=== PATIENT | male | born 1980 | race Native Hawaiian/Other Pacific Islander ===

== ENCOUNTER 2016-12-22 01:46 | Inpatient (IN) | payer OTHER ==
[2016-12-22] MEDS ORDERED: NACL 0.9% 1000 ML 1,000 ML IV ONE (01:52)
[2016-12-22 03:49] LABS: Basophils % (Auto) 0.4 % (0.0-1.8); Eosinophils % (Auto) 1.4 % (0.0-4.3); Hematocrit 38.8 % (35.5-45.6); Hemoglobin 13.4 gm/dl (11.8-15.2); Mean Corpuscular HGB Conc 35 % (32-34); Mean Corpuscular Hemoglobin 28 pg (28-32); Mean Corpuscular Volume 81 fl (84-94); Platelet Count 187 K/mm3 (140-440); Red Blood Count 4.81 M/mm3 (3.65-5.03); Red Cell Distribution Width 13.6 % (13.2-15.2); White Blood Count 8.1 K/mm3 (4.5-11.0)
[2016-12-22 03:50] LABS: Creatine Kinase 296 units/L (55-170); Creatine Kinase MB 2.3 ng/mL (0.0-4.0)
[2016-12-22 03:51] LABS: Alanine Aminotransferase 34 units/L (7-56); Albumin 4.3 g/dL (3.9-5); Albumin/Globulin Ratio 1.2 %; Alkaline Phosphatase 90 units/L (35-129); BUN/Creatinine Ratio 15.55; Bilirubin,Total 0.4 mg/dL (0.1-1.2); Blood Urea Nitrogen 14 mg/dL (9-20); Carbon Dioxide 26 mmol/L (22-30); Chloride 98.6 mmol/L (98-107); Glucose 111 mg/dL (75-100); Lipase 29 units/L (13-60); Potassium 4.2 mmol/L (3.6-5.0); Sodium 138 mmol/L (137-145)
[2016-12-22 03:54] LABS: Anion Gap 18 mmol/L
[2016-12-22 04:04] LABS: INR 0.95 (0.87-1.13); Partial Thromboplastin Time 28.7 Sec. (24.2-36.6)
[2016-12-22] MEDS ORDERED: PROTONIX IV ONE (06:28)
[2016-12-22] MEDS ORDERED: NORMODYNE IV ONE (06:30)
--- NOTE | 2016-12-22 06:32 | Emergency Department Report ---
ED GI Bleed HPI - General Chief complaint: GI Bleed Stated complaint: THROWING UP BLOOD Time Seen by Provider: 12/22/16 06:26 Source: patient Mode of arrival: Ambulatory Limitations: No Limitations - History of Present Illness Initial comments: The patient states that at approximately midnight he started vomiting. He denied abdominal plain. He had bright red hematemesis. He states he's never had anything like this before. He denies any obvious gastric irritants. He is not currently nauseated. He states he occasionally takes Advil but only drinks occasionally. He is essentially asymptomatic at this time. He was found to be hypertensive. He was given a bolus of saline prior to my arrival. MD complaint: gross hematemesis -: Sudden Severity scale (0 -10): 0 Quality: painless Consistency: now resolved Improves with: none Worsens with: none Associated Symptoms: denies other symptoms - Related Data Home Medications Medication Instructions Recorded Confirmed Last Taken No Known Home Medications [No 12/22/16 12/22/16 Unknown Reported Home Medications] Allergies Allergy/AdvReac Type Severity Reaction Status Date / Time No Known Allergies Allergy Verified 12/22/16 06:27 ED Review of Systems ROS: Stated complaint: THROWING UP BLOOD Other details as noted in HPI Constitutional: denies: chills, fever Eyes: denies: eye pain, eye discharge, vision change ENT: denies: ear pain, throat pain Respiratory: denies: cough, shortness of breath, wheezing Cardiovascular: denies: chest pain, palpitations Endocrine: no symptoms reported Gastrointestinal: hematemesis. denies: abdominal pain, nausea, diarrhea Genitourinary: denies: urgency, dysuria Musculoskeletal: denies: back pain, joint swelling, arthralgia Skin: denies: rash, lesions Neurological: denies: headache, weakness, paresthesias Psychiatric: denies: anxiety, depression Hematological/Lymphatic: denies: easy bleeding, easy bruising ED Past Medical Hx - Past Medical History Previous Medical History?: No - Surgical History Past Surgical History?: No - Social History Smoking Status: Never Smoker Substance Use Type: Alcohol - Medications Home Medications: Home Medications Medication Instructions Recorded Confirmed Last Taken Type No Known Home Medications [No 12/22/16 12/22/16 Unknown History Reported Home Medications] ED Physical Exam - General Limitations: No Limitations General appearance: alert, in no apparent distress - Head Head exam: Present: atraumatic, normocephalic - Eye Eye exam: Present: normal appearance, PERRL, EOMI. Absent: scleral icterus - ENT ENT exam: Present: normal exam, mucous membranes moist - Neck Neck exam: Present: normal inspection. Absent: tenderness, meningismus - Respiratory Respiratory exam: Present: normal lung sounds bilaterally. Absent: respiratory distress - Cardiovascular Cardiovascular Exam: Present: regular rate, normal rhythm. Absent: systolic murmur, diastolic murmur, rubs, gallop - GI/Abdominal GI/Abdominal exam: Present: soft, normal bowel sounds. Absent: distended, tenderness, guarding, rebound, rigid, organomegaly, mass, bruit, pulsatile mass , hernia - Rectal Rectal exam: Present: deferred - Extremities Exam Extremities exam: Present: normal inspection - Back Exam Back exam: Present: normal inspection - Neurological Exam Neurological exam: Present: alert, oriented X3, CN II-XII intact. Absent: motor sensory deficit - Psychiatric Psychiatric exam: Present: normal affect, normal mood - Skin Skin exam: Present: warm, dry, intact, normal color. Absent: rash ED Course Vital Signs 12/22/16 12/22/16 12/22/16 01:53 05:42 06:08 Temperature 98.7 F 98.6 F 98.1 F Pulse Rate 101 H 75 92 H Respiratory 22 20 18 Rate Blood Pressure 222/131 Blood Pressure 196/129 209/109 [Left] O2 Sat by Pulse 97 97 98 Oximetry 12/22/16 12/22/16 06:09 06:47 Temperature Pulse Rate 77 Respiratory 18 Rate Blood Pressure 175/99 Blood Pressure [Left] O2 Sat by Pulse 98 Oximetry - Reevaluation(s) Reevaluation #1: Discussed with Dr. Brown. Patient admitted to the hospitalist service. Given Protonix and labetalol for uncontrolled hypertension. A chest x-ray will be obtained. 12/22/16 07:36 ED Medical Decision Making - Lab Data Result diagrams: 12/22/16 03:15 12/22/16 03:15 Laboratory Results - last 24 hr 12/22/16 12/22/16 12/22/16 03:15 03:15 03:15 WBC 8.1 RBC 4.81 Hgb 13.4 Hct 38.8 MCV 81 L MCH 28 MCHC 35 H RDW 13.6 Plt Count 187 Lymph % (Auto) 17.2 [place] % (Auto) 9.0 H Eos % (Auto) 1.4 Baso % (Auto) 0.4 Lymph # 1.4 [place] # 0.7 Eos # 0.1 Baso # 0.0 Seg Neutrophils % 72.0 H Seg Neutrophils # 5.9 PT 12.6 INR 0.95 APTT 28.7 Sodium 138 Potassium 4.2 Chloride 98.6 Carbon Dioxide 26 Anion Gap 18 BUN 14 Creatinine 0.9 Estimated GFR > 60 BUN/Creatinine Ratio 15.55 Glucose 111 H Calcium 9.0 Total Bilirubin 0.4 AST 29 ALT 34 Alkaline Phosphatase 90 Total Creatine Kinase CK-MB (CK-2) CK-MB (CK-2) Rel Index Troponin T Total Protein 8.0 Albumin 4.3 Albumin/Globulin Ratio 1.2 Lipase 29 Blood Type Antibody Screen 12/22/16 12/22/16 03:15 03:15 WBC RBC Hgb Hct MCV MCH MCHC RDW Plt Count Lymph % (Auto) [place] % (Auto) Eos % (Auto) Baso % (Auto) Lymph # [place] # Eos # Baso # Seg Neutrophils % Seg Neutrophils # PT INR APTT Sodium Potassium Chloride Carbon Dioxide Anion Gap BUN Creatinine Estimated GFR BUN/Creatinine Ratio Glucose Calcium Total Bilirubin AST ALT Alkaline Phosphatase Total Creatine Kinase 296 H CK-MB (CK-2) 2.3 CK-MB (CK-2) Rel Index 0.7 Troponin T < 0.010 Total Protein Albumin Albumin/Globulin Ratio Lipase Blood Type A POSITIVE Antibody Screen Negative - EKG Data -: EKG Interpreted by Al EKG shows normal: sinus rhythm, axis, intervals, ST-T waves - EKG Data Interpretation: nonspecific ST-T wave lo, LVH (LVH by voltage. Lateral T wave inversions not unusual in LVH intraventricular conduction delay not unusual in LVH) Critical care attestation.: If time is entered above; I have spent that time in minutes in the direct care of this critically ill patient, excluding procedure time. ED Disposition Clinical Impression: Upper GI bleeding, Uncontrolled hypertension Disposition: DISCHARGED TO HOME OR SELFCARE Is pt being admited?: No Does the pt Need Aspirin: No Condition: Stable Instructions: Hypertension (ED) Forms: Accompanied Note Time of Disposition: 07:38
--- NOTE | 2016-12-22 07:49 | History and Physical Report ---
History of Present Illness Date of examination: 12/22/16 Date of admission: 12/22/16 Chief complaint: cough up blood History of present illness: Patient is 36 yo with no previous medical history. He presents with an episode of coughing up moderate amount of blood. He states he had been well and symptoms just started about midnight . He felt discomfort in throat and coughed up moderate amount of blood. He therefore came to ED for evaluation. He denies chest pain. No vomiting. No blood in stool.no shortness of breath. In Emergency Dept, chest X ray and CT chest were negative. He is being admitted. Past History Past Medical History: No medical history Past Surgical History: No surgical history Social history: single, smoking (No smoke), alcohol abuse (Alcohol occasionally) Family history: diabetes Medications and Allergies Allergies Allergy/AdvReac Type Severity Reaction Status Date / Time No Known Allergies Allergy Verified 12/22/16 06:27 Home Medications Medication Instructions Recorded Confirmed Last Taken Type No Known Home Medications [No 12/22/16 12/22/16 Unknown History Reported Home Medications] Review of Systems All systems: negative (No chest pain, no fever, no urinary symptoms. no headache. All other systems reviewed and are negative) Exam - Physical Exam Narrative exam: Gen appearance : Not in acute distress, sitting up in bed,morbid obesity HEENT: Normocephalic atraumatic Neck: supple, no JVD. Lungs: Lungs clear to auscultation, no crackles Heart: S1 and S2 regular, no murmurs, rubs or gallop Abdomen: soft, non-tender, non-distended, normal bowel sounds Extremities: No edema, no clubbing or cyanosis Neuro : Awake alert oriented 3, no focal signs skin: no rashes - Constitutional Vitals: Temp Pulse Resp BP Pulse Ox 98.1 F 77 18 175/99 98 12/22/16 06:08 12/22/16 06:47 12/22/16 06:09 12/22/16 06:47 12/22/16 06:09 Results - Labs CBC & Chem 7: 12/22/16 19:57 12/22/16 03:15 Labs: Abnormal lab results 12/22/16 12/22/16 12/22/16 Range/Units 03:15 03:15 03:15 MCV 81 L (84-94) fl MCHC 35 H (32-34) % [place] % (Auto) 9.0 H (0.0-7.3) % Seg Neutrophils % 72.0 H (40.0-70.0) % Glucose 111 H (75-100) mg/dL Total Creatine Kinase 296 H (55-170) units/L Assessment and Plan Hemoptysis. Etiology unclear. Admit to Medical floor. Obtain hemoglobin/ hematocrit Q 8h. CT angiogram chest neg. Chest X ray neg. hemoptysis may be secondary to acute bronchitis with cough. If any more hemoptysis will consult Pulmonology. Acute bronchitis, possibly. Solumedrol, Neb. HTN urgency. new diagnosis. He denies history of hypertension. Initial BP 222/ 131. Gave Labetalol iv. Start Norvasc and Hydralazine orally. Hydralazine iv prn. Morbid obesity. DVT prophylaxis. SCDs only because of hemoptysis. Full code status.
--- NOTE | 2016-12-22 07:51 | XRay Report ---
AP CHEST: HISTORY: Hypertension AP view of the chest demonstrates a normal mediastinal and cardiac contour with clear lungs and normal bony and soft tissue structures. IMPRESSION: Unremarkable AP chest.
[2016-12-22] MEDS ORDERED: NACL ONE (08:12)
--- NOTE | 2016-12-22 08:55 | Cat Scan Report ---
CTA CHEST: History: Hemoptysis. Technique: Helical CT following IV contrast. Pulmonary embolus protocol. Sagittal and coronal reformatted images. Rotational MIP images. Findings: Compared to the AP chest performed earlier today. Contrast bolus is satisfactory. No pulmonary embolus is identified. The thyroid gland, tracheobronchial tree, esophagus, heart, pericardium, mediastinal vessels, lung wright and bony thorax are unremarkable. Impression: No evidence for pulmonary embolus. Unremarkable CT chest with contrast.
[2016-12-22] MEDS ORDERED: TYLENOL PO PRN (10:06)
[2016-12-22] MEDS ORDERED: ZOFRAN IV PRN (10:06)
[2016-12-22] MEDS ORDERED: PROVENTIL IH PRN (10:06)
--- NOTE | 2016-12-22 10:51 | Admit Criteria Form ---
Admission Criteria Documentation: HYPERTENSION Clinical Indications for Admission to Inpatient Care ( Place "X" for any and all applicable criteria): Admission is indicated for ANY ONE of the following(1)(2)(3)(4): [ ]I. Hypertensive emergency, with evidence of acute and progressing target organ disease as indicated by ANY ONE of the following: [ ]a) Hypertensive encephalopathy (eg, confusion, altered mental status) [ ]b) Cerebral infarction [ ]c) Intracranial hemorrhage [ ]d) Myocardial ischemia or infarction [ ]e) Pulmonary edema [ ]f) Aortic dissection [ ]g) Seizure [ ]h) Acute renal insufficiency [ ]i) Papilledema [ ]j) Microangiopathic hemolytic anemia [ ]II. Adrenergic crisis (eg, severe hypertension due to pheochromocytoma crisis, cocaine or amphetamine intoxication, or clonidine withdrawal) [X]III. Severe hypertension (SBP greater than 180 mmHg or DBP greater than 110 mmHg or greater than the 95th percentile for age, gender, and height in pediatric patients) that cannot be controlled (eg, to SBP less than 160 mmHg and DBP less than 100 mmHg in adults) by treatment with oral medication in emergency department or observation care Extended stay beyond goal length of stay may be needed for(11)(12)(13): [ ]a) Persistent hypertensive encephalopathy [ ]b) Continuation of pulmonary edema [ ]c) Recurring or persistent severe hypertension [ ]d) Target organ damage (eg, angina, stroke, aortic dissection) [ ]e) Associated renal insufficiency The original [employer] content created by [employer] has been revised. The portions of the content which have been revised are identified through the use of italic text or in bold, and [employer] has neither reviewed nor approved the modified material. All other unmodified content is copyright [employer]. Please see references footnoted in the original [employer] edition 2016 Admission Criteria Met: Yes
[2016-12-22] MEDS ORDERED: D5NS 1,000 ML IV ONE (11:01)
[2016-12-22] MEDS: D5NS 1,000 ML IV SCH ×2 (11:09→14:42)
[2016-12-22 11:30] LABS: Urine Drugs of Abuse Note Disclamer
[2016-12-22 11:39] LABS: Bilirubin,Urine NEG (Negative); Blood,Urine NEG (Negative); Ketones,Urine NEG (Negative); Leukocyte Esterase,Urine NEG (Negative); Mucus,Urine FEW /HPF; Nitrite,Urine NEG (Negative); Protein,Urine <15 mg/dL mg/dL (Negative); Urobilinogen,Urine < 2.0 mg/dL (<2.0)
[2016-12-22 13:29] LABS: Hematocrit 39.4 % (35.5-45.6); Hemoglobin 13.4 gm/dl (11.8-15.2)
[2016-12-22] MEDS: PROTONIX IV SCH ×2 (14:40→22:07)
[2016-12-22] MEDS: APRESOLINE IV PRN ×2 (14:44→22:08)
[2016-12-22] MEDS: TESSALON PERLES PO SCH ×2 (18:16→22:07)
[2016-12-22] MEDS: NORVASC PO SCH (18:17)
[2016-12-22] MEDS: APRESOLINE PO SCH ×2 (18:18→22:10)
[2016-12-22 20:34] LABS: Hematocrit 39.7 % (35.5-45.6); Hemoglobin 13.5 gm/dl (11.8-15.2)
[2016-12-22] MEDS ORDERED: APRESOLINE IV PRN (22:44)
[2016-12-23] MEDS: D5NS 1,000 ML IV SCH (03:29)
[2016-12-23 05:21] LABS: Basophils % (Auto) 0.2 % (0.0-1.8); Hemoglobin 13.6 gm/dl (11.8-15.2); Mean Corpuscular HGB Conc 33 % (32-34); Mean Corpuscular Hemoglobin 27 pg (28-32); Mean Corpuscular Volume 81 fl (84-94); Platelet Count 203 K/mm3 (140-440); Red Blood Count 5.04 M/mm3 (3.65-5.03); Red Cell Distribution Width 14.1 % (13.2-15.2); White Blood Count 9.7 K/mm3 (4.5-11.0)
[2016-12-23 05:39] LABS: Anion Gap 18 mmol/L; BUN/Creatinine Ratio 13.75; Blood Urea Nitrogen 11 mg/dL (9-20); Calcium 8.8 mg/dL (8.4-10.2); Carbon Dioxide 23 mmol/L (22-30); Chloride 103.2 mmol/L (98-107); Glucose 124 mg/dL (75-100); Potassium 4.1 mmol/L (3.6-5.0); Sodium 140 mmol/L (137-145)
[2016-12-23] MEDS: APRESOLINE PO SCH ×2 (06:05→13:40)
[2016-12-23] MEDS: TESSALON PERLES PO SCH ×2 (06:06→13:40)
[2016-12-23] MEDS: PROTONIX IV SCH (10:12)
[2016-12-23] MEDS: NORVASC PO SCH (10:12)
[2016-12-23] MEDS ORDERED: NORVASC PO STA (10:13)
--- NOTE | 2016-12-23 10:22 | Discharge Summary ---
Providers - Providers Date of Admission: 12/22/16 10:06 Date of discharge: 12/23/16 Attending physician: CORBY SANFORD MD Primary care physician: PYROTECHN[facility]IAN Hospitalization Reason for admission: hemoptysis Condition: Stable Hospital course: Patient is 36 yo with no previous medical history. He presents with an episode of coughing up moderate amount of blood. He states he had been well and symptoms just started about midnight . He felt discomfort in throat and coughed up moderate amount of blood. He therefore came to ED for evaluation. He denies chest pain. No vomiting. No blood in stool.no shortness of breath. In Emergency Dept, chest X ray and CT chest were negative. He is being admitted. On admission patient's symptoms resolved completely. I'll follow discussion with the patient appears that he has been having cough episodes and subsequently one of the episodes produced blood with the expectorate. This has resolved, we had extensive discussion about weightloss and the patient verbalized understanding. We will start the patient on BP medications and he is to keep a diary of BP and follow with PCP. Discharge Diagnosis Acute bronchitis Hemoptysis-resolved HTN urgency. Morbid obesity. Disposition: DISCHARGED TO HOME OR SELFCARE Time spent for discharge: 35 mins Core Measure Documentation - Palliative Care Palliative Care/ Comfort Measures: Not Applicable - Core Measures Any of the following diagnoses?: none - VTE Discharge Requirements Deep Vein Thrombosis/Pulmonary Embolism Present on Admission: No Exam - Physical Exam Narrative exam: VITAL SIGNS: Reviewed. GENERAL: The patient appeared well nourished and normally developed. Vital signs as documented. HEAD: No signs of head trauma. EYES: Pupils are equal. Extraocular motions intact. EARS: Hearing grossly intact. MOUTH: Oropharynx is normal. NECK: No adenopathy, no JVD. CHEST: Chest with clear breath sounds bilaterally. No wheezes, rales, or rhonchi. CARDIAC: Regular rate and rhythm. S1 and S2, without murmurs, gallops, or rubs. VASCULAR: No Edema. Peripheral pulses normal and equal in all extremities. ABDOMEN: Soft, without detectable tenderness. No sign of distention. No rebound or guarding, and no masses palpated. Bowel Sounds normal. MUSCULOSKELETAL: Good range of motion of all major joints. Extremities without clubbing, cyanosis or edema. NEUROLOGIC EXAM: Alert and oriented x 3. No focal sensory or strength deficits. Speech normal. Follows commands. PSYCHIATRIC: Mood normal. SKIN: No rash or lesions. - Constitutional Vitals: Temp Pulse Resp BP Pulse Ox 98.0 F 85 22 164/88 98 12/23/16 07:15 12/23/16 10:12 12/23/16 07:15 12/23/16 10:12 12/23/16 07:15 Plan Activity: advance as tolerated Diet: low salt Special Instructions: record daily BP diary Additional Instructions: Return to hospital if Hemoptysis reoccurs Follow up with: PRIMARY CARE, [Primary Care Provider] - 3-5 Days Forms: Work/School Release Form Prescriptions: amLODIPine [Norvasc] 10 mg PO DAILY #30 tab Prednisone [predniSONE 5 mg (6-Day Pack, 21 Tabs)] 5 mg PO .TAPER #1 tab.pk
[2016-12-23] MEDS ORDERED: FLUARIX QUAD 2016-2017(36 MOS+) IM ONE (12:00)
[2016-12-23 13:25] VITALS: BP 168/98
== END 2016-12-23 14:06 | disposition home or self-care (01) | DRG 202 ==
LOC: ED 01:46 → 3A 10:06
PROVIDERS: ADMIT Internal Medicine; ATTEND Internal Medicine
DX: J20.9 Acute bronchitis, unspecified (principal); R04.2 Hemoptysis; Z68.42 Body mass index [BMI] 45.0-49.9, adult; I16.0 Hypertensive urgency; E66.01 Morbid (severe) obesity due to excess calories; I10 Essential (primary) hypertension; Z83.3 Family history of diabetes mellitus
CPT/HCPCS: 36415; 71010; 71275; 80048; 80053; 80307; 81001; 82550; 82553; 82962; 83690; 84484; 85014; 85018; 85025; 85610; 85730; 86850; 86900; 86901; 90686; 93005; 93010; 96361; 96374; 96375; C9113; J0360; J2920; J7030; J7042; Q9967

== ENCOUNTER 2020-10-30 02:15 | Inpatient (IN) | payer OTHER, SELFPAY ==
[2020-10-30] MEDS ORDERED: SODIUM CHLORIDE 0.9% 1000 ML IV SOLN IV ONE (02:45)
[2020-10-30] MEDS ORDERED: dexAMETHasone 4 MG/ML VIAL IV ONE (02:46)
[2020-10-30] MEDS ORDERED: cefTRIAXone/NS 2 GM/100 ML 2 GM/100 ML BAG IV ONE (02:46)
--- NOTE | 2020-10-30 02:49 | Emergency Department Report ---
ED Shortness of Breath HPI - General Chief Complaint: Dyspnea/Respdistress Stated Complaint: DIFFICULTY IN BREATHING Time Seen by Provider: 10/30/20 02:44 Source: EMS Mode of arrival: Stretcher Limitations: No Limitations - History of Present Illness Initial Comments: Patient is a 40-year-old male that presents emergency room with complaints of shortness of breath, cough, fever, COVID-19. Patient states he has been with cough and fever for approximately 7 to 10 days. Patient states that his shortness of breath started 4 days ago. Patient states his shortness of breath is worsening. Patient states short of breath so bad he had to call EMS. Adenike ferrell was brought in by EMS. EMS found the patient to be hypoxic at 90% and was placed on 4 L. Patient's oxygen improved with 4 L. Patient states he had his COVID-19 test on Tuesday and it was positive. Patient denies loss of smell. Patient denies nausea and vomiting. Patient denies chest pain. Patient complains of fever and chills. MD Complaint: shortness of breath, cough -: Sudden Severity: severe Improves With: rest Worsens With: exertion Known History Of: other Context: recent URI Associated Symptoms: fever, cough - Related Data Home Oxygen Therapy: No Previous Rx's Medication Instructions Recorded Last Taken Type amLODIPine [Norvasc] 10 mg PO DAILY #30 tab 12/23/16 Unknown Rx Allergies Allergy/AdvReac Type Severity Reaction Status Date / Time No Known Allergies Allergy Verified 12/22/16 06:27 ED Review of Systems ROS: Stated complaint: DIFFICULTY IN BREATHING Other details as noted in HPI Constitutional: chills, fever Eyes: denies: eye pain, eye discharge, vision change ENT: denies: ear pain, throat pain Respiratory: cough, shortness of breath. denies: wheezing Cardiovascular: denies: chest pain, palpitations Endocrine: no symptoms reported Gastrointestinal: denies: abdominal pain, nausea, diarrhea Genitourinary: denies: urgency, dysuria Musculoskeletal: denies: back pain, joint swelling, arthralgia Skin: denies: rash, lesions Neurological: denies: headache, weakness, paresthesias Psychiatric: denies: anxiety, depression Hematological/Lymphatic: denies: easy bleeding, easy bruising ED Past Medical Hx - Past Medical History Previous Medical History?: Yes Hx Hypertension: Yes Hx Congestive Heart Failure: No Hx Diabetes: No Hx Asthma: No Hx COPD: No Hx HIV: No - Surgical History Past Surgical History?: No - Family History Family history: no significant - Social History Smoking Status: Never Smoker Substance Use Type: None - Medications Home Medications: Home Medications Medication Instructions Recorded Confirmed Last Taken Type amLODIPine [Norvasc] 10 mg PO DAILY #30 tab 12/23/16 10/30/20 Unknown Rx ED Physical Exam - General Limitations: No Limitations General appearance: alert, in no apparent distress - Head Head exam: Present: atraumatic, normocephalic - Eye Eye exam: Present: normal appearance - ENT ENT exam: Present: mucous membranes moist - Neck Neck exam: Present: normal inspection - Respiratory Respiratory exam: Present: decreased breath sounds. Absent: respiratory distress - Cardiovascular Cardiovascular Exam: Present: regular rate, normal rhythm. Absent: systolic murmur, diastolic murmur, rubs, gallop - GI/Abdominal GI/Abdominal exam: Present: soft, normal bowel sounds - Rectal Rectal exam: Present: deferred - Extremities Exam Extremities exam: Present: normal inspection - Back Exam Back exam: Present: normal inspection - Neurological Exam Neurological exam: Present: alert, oriented X3 - Psychiatric Psychiatric exam: Present: normal affect, normal mood - Skin Skin exam: Present: warm, dry, intact, normal color. Absent: rash ED Course Vital Signs 10/30/20 10/30/20 10/30/20 02:20 02:22 02:31 Temperature 98.6 F Pulse Rate 93 H 96 H 96 H Respiratory 31 H 29 H 19 Rate Blood Pressure Blood Pressure 129/75 [right arm] O2 Sat by Pulse 95 96 92 Oximetry 10/30/20 10/30/20 10/30/20 02:45 03:00 03:16 Temperature Pulse Rate 89 93 H 84 Respiratory 29 H 29 H 27 H Rate Blood Pressure 131/70 131/70 131/70 Blood Pressure [right arm] O2 Sat by Pulse 93 91 93 Oximetry 10/30/20 10/30/20 10/30/20 03:30 03:46 04:00 Temperature Pulse Rate 89 Respiratory 31 H Rate Blood Pressure 131/70 131/70 143/82 Blood Pressure [right arm] O2 Sat by Pulse 94 93 92 Oximetry 10/30/20 10/30/20 10/30/20 04:16 04:30 04:46 Temperature Pulse Rate Respiratory 15 Rate Blood Pressure 143/82 143/82 143/82 Blood Pressure [right arm] O2 Sat by Pulse 91 90 Oximetry - Reevaluation(s) Reevaluation #1: I discussed all results with patient. I discussed plan of care with patient. Patient agrees with plan of care and admission. Patient to be admitted to the hospitalist service. 10/30/20 03:38 - Consultations Consultation #1: Hospitalist consulted for admission. Hospitalist to admit patient. 10/30/20 03:40 Consultation #2: Infectious disease consult placed. 10/30/20 03:41 ED Medical Decision Making - Lab Data Result diagrams: 10/30/20 02:59 10/30/20 02:59 - Radiology Data Radiology results: report reviewed, image reviewed CHEST 1 VIEW INDICATION: sob. COMPARISON: 12/22/2016 FINDINGS: SUPPORT DEVICES: None. HEART: Within normal limits. LUNGS/PLEURA: Patchy left basilar airspace disease. ADDITIONAL FINDINGS: None. IMPRESSION: 1. Pulmonary findings as above. - Medical Decision Making Patient is a 40-year-old male that presents emergency room with complaints of shortness of breath, cough, COVID-19. Patient had a Covid test 3 to 4 days prior to coming to the hospital. Patient shortness of breath has been going on for 3 or 4 days and is worsening. Patient brought in by EMS and found to be hypoxic. Patient required 4 L of oxygen to maintain an oxygen level of 96. Patient given antibiotics, fluids early in his ER stay. Patient had a sepsis protocol as well as a Covid panel done. ID was consulted. Patient admitted to the hospital service for further evaluation and treatment. - Differential Diagnosis Covid, S OB, pneumonia, respiratory failure, Critical Care Time: Yes Critical care time in (mins) excluding proc time.: 35 Critical care attestation.: If time is entered above; I have spent that time in minutes in the direct care of this critically ill patient, excluding procedure time. Critical Care Time: 35 minutes ED Disposition Clinical Impression: Hypoxia, SOB (shortness of breath), COVID-19 Respiratory failure Qualifiers: Chronicity: acute Respiratory failure complication: hypoxia Qualified Code(s): J96.01 - Acute respiratory failure with hypoxia Pneumonia Qualifiers: Pneumonia type: due to unspecified organism Laterality: bilateral Lung location: unspecified part of lung Qualified Code(s): J18.9 - Pneumonia, unspecified organism Disposition: 09 OP ADMIT IP TO THIS HOSP Is pt being admited?: Yes Does the pt Need Aspirin: No Condition: Critical Time of Disposition: 03:38
[2020-10-30 02:53] LABS: Bilirubin,Urine NEG (Negative); Blood,Urine SM (Negative); Color,Urine Yellow (Yellow); Mucus,Urine FEW /HPF
[2020-10-30 03:05] LABS: Bacteria,Urine 1+ /HPF (Negative)
[2020-10-30 03:17] LABS: Basophils % (Auto) 0.1 % (0.0-1.8); Hematocrit 36.6 % (35.5-45.6); Hemoglobin 12.7 gm/dl (11.8-15.2); Lymphocytes # (Auto) 0.8 K/mm3 (1.2-5.4); Lymphocytes % (Auto) 13.7 % (13.4-35.0); Mean Corpuscular HGB Conc 35 % (32-34); Mean Corpuscular Volume 81 fl (84-94); Monocytes # (Auto) 0.7 K/mm3 (0.0-0.8); Platelet Count 158 K/mm3 (140-440); Red Cell Distribution Width 13.2 % (13.2-15.2)
--- NOTE | 2020-10-30 03:31 | XRay Report ---
CHEST 1 VIEW INDICATION: sob. COMPARISON: 12/22/2016 FINDINGS: SUPPORT DEVICES: None. HEART: Within normal limits. LUNGS/PLEURA: Patchy left basilar airspace disease. ADDITIONAL FINDINGS: None. IMPRESSION: 1. Pulmonary findings as above. Signer Name: Reji Aguilar MD Signed: 10/30/2020 3:26 AM Workstation Name: [id number]
[2020-10-30 03:35] LABS: Alanine Aminotransferase 55 units/L (7-56); Albumin 3.6 g/dL (3.9-5); BUN/Creatinine Ratio 14; Blood Urea Nitrogen 13 mg/dL (9-20); Calcium 8.4 mg/dL (8.4-10.2); Hemolysis Index 5
[2020-10-30 03:42] LABS: C-Reactive Protein 8.3 mg/dL (0.00-1.30)
[2020-10-30] MEDS ORDERED: ACETAMINOPHEN 325 MG TAB PO PRN (04:31)
[2020-10-30] MEDS ORDERED: ONDANSETRON 4 MG/2 ML INJ IV PRN (04:34)
--- NOTE | 2020-10-30 05:07 | History and Physical Report ---
History of Present Illness Date of examination: 10/30/20 Date of admission: 10/30/20 03:46 Chief complaint: Shortness of breath, cough and fever History of present illness: History of presenting illness, Patient is 4o year old male who presents to ED with history of cough , fever and weakness going on for about 10 days, patient later on developed history of short ness of breath about 4 days ago that became progressively worse to the extent that patient could not engage in mild activity and EMS was called and patient was found to be hypoxic and he was placed on oxygen with improvement in the shortness of breath.Patient recently tested positive to COVID -19 about 4 days prior to presentation. Past History Past Medical History: hypertension Past Surgical History: No surgical history Social history: no significant social history Family history: no significant family history Medications and Allergies Allergies Allergy/AdvReac Type Severity Reaction Status Date / Time No Known Allergies Allergy Verified 12/22/16 06:27 Home Medications Medication Instructions Recorded Confirmed Last Taken Type amLODIPine [Norvasc] 10 mg PO DAILY #30 tab 12/23/16 10/30/20 Unknown Rx Active Meds: Active Medications Acetaminophen (Tylenol) 650 mg PO Q4H PRN PRN Reason: Fever >101 Dexamethasone (Decadron) 6 mg IV DAILY EVER Heparin Sodium (Porcine) (Heparin) 5,000 unit SUB-Q Q12HR [facility]ER Azithromycin 500 mg/ Sodium (Chloride) 250 mls @ 250 mls/hr IV Q24HR EVER; Protocol Ceftriaxone Sodium (Rocephin/Ns 2 Gm/100 Ml) 2 gm in 100 mls @ 200 mls/hr IV Q24HR [facility]ER; Protocol Ondansetron HCl (Zofran) 4 mg IV Q8H PRN PRN Reason: Nausea And Vomiting Review of Systems Constitutional: fever, chills, weakness, no sweats, no night sweats Eyes: bilateral: other (NO BILATERAL EYE SYMPTOM) Cardiovascular: no chest pain, no orthopnea, no palpitations, no rapid/irregular heart beat, no syncope, no lightheadedness Respiratory: cough, shortness of breath, dyspnea on exertion, no cough with sputum, no excessive sputum, no hemoptysis, no congestion, no wheezing, no pleurisy, no pain Gastrointestinal: no abdominal pain, no nausea, no vomiting, no diarrhea, no constipation, no hematemesis, no melena, no hematochezia Genitourinary Male: no dysuria, no hematuria, no nocturia, no incontinence, no erectile dysfunction Musculoskeletal: no neck stiffness, no neck pain, no shooting arm pain, no arm numbness/tingling, no low back pain, no shooting leg pain Integumentary: no rash, no pruritis, no redness, no sores, no wounds Neurological: weakness, no paralysis, no numbness, no tingling, no seizures, no syncope, no tremors, no vertigo, no headaches, no migraines, no convulsions, no confusion Psychiatric: no anxiety, no memory loss Endocrine: no polydipsia, no polyuria, no nocturia, no excessive sweating Hematologic/Lymphatic: no easy bruising Exam - Constitutional Vitals: Temp Pulse Resp BP Pulse Ox 98.6 F 89 31 H 131/70 93 10/30/20 02:22 10/30/20 03:30 10/30/20 03:30 10/30/20 03:46 10/30/20 03:46 General appearance: Present: no acute distress - EENT Eyes: Present: PERRL, EOM intact ENT: hearing intact, clear oral mucosa - Neck Neck: Present: supple, normal ROM - Respiratory Respiratory effort: normal - Cardiovascular Rhythm: regular Heart Sounds: Present: S1 & S2. Absent: gallop, systolic murmur, diastolic murmur, click - Extremities Extremities: no ischemia, No edema Peripheral Pulses: within normal limits - Abdominal General gastrointestinal: Present: soft, non-tender, non-distended. Absent: tender, distended, rigid, hepatomegaly Male genitourinary: Present: deferred - Rectal Rectal Exam: deferred - Integumentary Integumentary: Present: clear, warm, dry - Musculoskeletal Musculoskeletal: strength equal bilaterally - Psychiatric Psychiatric: appropriate mood/affect - Neurologic Neurologic: moves all extremities HEART Score - HEART Score Risk factors: 1-2 risk factors Troponin: < normal limit - Critical Actions Critical Actions: 0-3 pts:0.9-1.7%risk of adverse cardiac event.Candidate for discharge Results - Labs CBC & Chem 7: 10/30/20 02:59 10/30/20 02:59 Labs: Laboratory Last Values WBC 6.2 K/mm3 (4.5-11.0) 10/30/20 02:59 RBC 4.50 M/mm3 (3.65-5.03) 10/30/20 02:59 Hgb 12.7 gm/dl (11.8-15.2) 10/30/20 02:59 Hct 36.6 % (35.5-45.6) 10/30/20 02:59 MCV 81 fl (84-94) L 10/30/20 02:59 MCH 28 pg (28-32) 10/30/20 02:59 MCHC 35 % (32-34) H 10/30/20 02:59 RDW 13.2 % (13.2-15.2) 10/30/20 02:59 Plt Count 158 K/mm3 (140-440) 10/30/20 02:59 Lymph % (Auto) 13.7 % (13.4-35.0) 10/30/20 02:59 [place] % (Auto) 11.0 % (0.0-7.3) H 10/30/20 02:59 Eos % (Auto) 0.0 % (0.0-4.3) 10/30/20 02:59 Baso % (Auto) 0.1 % (0.0-1.8) 10/30/20 02:59 Lymph # (Auto) 0.8 K/mm3 (1.2-5.4) L 10/30/20 02:59 [place] # (Auto) 0.7 K/mm3 (0.0-0.8) 10/30/20 02:59 Eos # (Auto) 0.0 K/mm3 (0.0-0.4) 10/30/20 02:59 Baso # (Auto) 0.0 K/mm3 (0.0-0.1) 10/30/20 02:59 Seg Neutrophils % 75.2 % (40.0-70.0) H 10/30/20 02:59 Seg Neutrophils # 4.6 K/mm3 (1.8-7.7) 10/30/20 02:59 D-Dimer 494.03 ng/mlDDU (0-234) H 10/30/20 02:59 Sodium 134 mmol/L (137-145) L 10/30/20 02:59 Potassium 3.7 mmol/L (3.6-5.0) 10/30/20 02:59 Chloride 97.3 mmol/L (98-107) L 10/30/20 02:59 Carbon Dioxide 24 mmol/L (22-30) 10/30/20 02:59 Anion Gap 16 mmol/L 10/30/20 02:59 BUN 13 mg/dL (9-20) 10/30/20 02:59 Creatinine 0.9 mg/dL (0.8-1.3) 10/30/20 02:59 Estimated GFR > 60 ml/min 10/30/20 02:59 BUN/Creatinine Ratio 14 % 10/30/20 02:59 Glucose 106 mg/dL (75-100) H 10/30/20 02:59 Glucose 108 mg/dL (75-100) H 10/30/20 02:59 Lactic Acid 1.10 mmol/L (0.7-2.0) 10/30/20 03:09 Calcium 8.4 mg/dL (8.4-10.2) 10/30/20 02:59 Ferritin 528.3 ng/mL (30.0-300.0) H 10/30/20 03:02 Total Bilirubin 0.50 mg/dL (0.1-1.2) 10/30/20 02:59 AST 34 units/L (5-40) 10/30/20 02:59 ALT 55 units/L (7-56) 10/30/20 02:59 Alkaline Phosphatase 62 units/L (35-129) 10/30/20 02:59 Lactate Dehydrogenase 271 units/L (91-180) H 10/30/20 02:59 C-Reactive Protein 8.30 mg/dL (0.00-1.30) H 10/30/20 02:59 Total Protein 7.4 g/dL (6.3-8.2) 10/30/20 02:59 Albumin 3.6 g/dL (3.9-5) L 10/30/20 02:59 Albumin/Globulin Ratio 0.9 % 10/30/20 02:59 Urine Color Yellow (Yellow) 10/30/20 Unknown Urine Turbidity Clear (Clear) 10/30/20 Unknown Urine pH 5.0 (5.0-7.0) 10/30/20 Unknown Ur Specific [place] 1.025 (1.003-1.030) 10/30/20 Unknown Urine Protein 30 mg/dl mg/dL (Negative) 10/30/20 Unknown Urine Glucose (UA) Neg mg/dL (Negative) 10/30/20 Unknown Urine Ketones Neg mg/dL (Negative) 10/30/20 Unknown Urine Blood Sm (Negative) 10/30/20 Unknown Urine Nitrite Neg (Negative) 10/30/20 Unknown Urine Bilirubin Neg (Negative) 10/30/20 Unknown Urine Urobilinogen 2.0 mg/dL (<2.0) 10/30/20 Unknown Ur Leukocyte Esterase Neg (Negative) 10/30/20 Unknown Urine WBC (Auto) 6.0 /HPF (0.0-6.0) 10/30/20 Unknown Urine RBC (Auto) 1.0 /HPF (0.0-6.0) 10/30/20 Unknown U Epithel Cells (Auto) 1.0 /HPF (0-13.0) 10/30/20 Unknown Urine Bacteria (Auto) 1+ /HPF (Negative) 10/30/20 Unknown Urine Mucus Few /HPF 10/30/20 Unknown [place]/IV: IV Catheter Type [left adc] Peripheral IV Assessment and Plan - Patient Problems (1) COVID-19 Current Visit: Yes Status: Acute Plan to address problem: 1 CONTACT AND DROPLET ISOLATION 2. INFECTIOUS DISEASE CONSULT 3. I.V DEXAMETHASONE 3. I.V ZITHROMAX AND I.V ROCEPHIN ANTIBIOTIC (2) Hypoxia Current Visit: Yes Status: Acute Plan to address problem: OXYGEN BY NAASAL CANNULA (3) Pneumonia Current Visit: Yes Status: Acute Qualifiers: Pneumonia type: due to unspecified organism Laterality: bilateral Lung location: unspecified part of lung Qualified Code(s): J18.9 - Pneumonia, unspecified organism Plan to address problem: 1. I.V ZITHROMAX ANTIBIOTIC 2. I.V ROCEPHIN ANTIBIOTIC 3. TYLENOL PO FOR FEVER 4. OXYGEN BY NASAL CANNULA (4) Respiratory failure Current Visit: Yes Status: Acute Qualifiers: Chronicity: acute Respiratory failure complication: hypoxia Qualified Code(s): J96.01 - Acute respiratory failure with hypoxia Plan to address problem: 1. OXYGEN BY NASAL CANNULA 2. ALBUTEROL NEBULIZER PRN SHORTNESS OF BREATH
[2020-10-30 09:25] LABS: C-Reactive Protein 8.2 mg/dL (0.00-1.30)
[2020-10-30] MEDS: HEPARIN 5,000 UNIT/1 ML VIAL SUB-Q SCH ×2 (09:56→22:52)
[2020-10-30] MEDS: DEXAMETHASONE 4 MG TAB PO SCH (09:57)
[2020-10-30] MEDS ORDERED: dexAMETHasone 4 MG/ML VIAL IV SCH (10:00)
[2020-10-30] MEDS ORDERED: AZITHROMYCIN 500 MG in SODIUM CHLORIDE 0.9% 250ML 250 ML IV SCH ×2 (10:00)
--- NOTE | 2020-10-30 13:36 | Event Note ---
Date: 10/30/20 Patient seen and examined continues in restraints. Will continue current care, await home meds to reconcile. Awaiting COVID19 result.
--- NOTE | 2020-10-30 15:29 | Consultation ---
History of Present Illness - Reason for Consult Consult date: 10/30/20 - History of Present Illness 40-year-old man medical history hypertension, morbid obesity admitted to the hospital with cough, fever, weakness for the past 10 days. Approximately 4 days ago developed shortness of breath. And that became progressively worse which prompted admission to the hospital. Patient notes that he tested positive for COVID-19 4 days prior to presentation. With a white count of 6.2. Procalcitonin is normal renal function is normal. Currently on ceftriaxone azithromycin. Blood cultures currently pending. Imaging personally reviewed: Chest x-ray: Patchy left airspace disease. Review of Systems: Bold if positive, otherwise negative General: fevers, chills, rigors HEENT: visual disturbance, diplopia, eye pain Respiratory: cough, sputum, hemoptysis, shortness of breath Cardiovascular: chest pain, syncope Gastrointestinal: nausea, vomiting, diarrhea, abdominal pain Genitourinary: dysuria, hematuria, flank pain Musculoskeletal: neck pain, back pain, joint pain, edema Neurologic: headaches, seizures Hematologic: easy bruising or bleeding Endocrine: night sweats, acute weight loss Skin: rash, jaundice, redness Psychiatric: suicidal, homicidal ideation Past History Past Medical History: hypertension Past Surgical History: No surgical history Social history: no significant social history Family history: no significant family history Medications and Allergies Allergies Allergy/AdvReac Type Severity Reaction Status Date / Time No Known Allergies Allergy Verified 12/22/16 06:27 Home Medications Medication Instructions Recorded Confirmed Last Taken Type amLODIPine [Norvasc] 10 mg PO DAILY #30 tab 12/23/16 10/30/20 Unknown Rx Lisinopril 20 mg PO DAILY 10/30/20 10/30/20 10/29/20 History Procardia 10/30/20 10/29/20 History Active Meds: Active Medications Acetaminophen (Tylenol) 650 mg PO Q4H PRN PRN Reason: Fever >101 Azithromycin (Zithromax) 500 mg PO QDAY [facility] Stop: 11/03/20 10:01 Dexamethasone (Decadron) 6 mg PO DAILY [facility] Stop: 11/08/20 10:01 Last Admin: 10/30/20 09:57 Dose: 6 mg Documented by: Heparin Sodium (Porcine) (Heparin) 5,000 unit SUB-Q Q12HR [facility] Last Admin: 12/03/20 09:56 Dose: 5,000 unit Documented by: Ceftriaxone Sodium (Rocephin/Ns 2 Gm/100 Ml) 2 gm in 100 mls @ 200 mls/hr IV Q24HR@2200 [facility]; Protocol Ondansetron HCl (Zofran) 4 mg IV Q8H PRN PRN Reason: Nausea And Vomiting Physical Examination - Physical Exam Narrative exam: Physical exam deferred due to PPE conservation strategy. Please refer to primary team's note. - Constitutional Vitals: Vital Signs Temp Pulse Resp BP Pulse Ox 97.9 F 83 20 112/73 95 10/30/20 11:57 10/30/20 11:57 10/30/20 11:57 10/30/20 11:57 10/30/20 11:57 Temperature -Last 24 Hours Temperature 97.9 F Temperature 97.9 F Temperature 98.6 F Results - Labs CBC & Chem 7: 10/30/20 02:59 10/30/20 07:36 Labs: Abnormal lab results 10/30/20 10/30/20 10/30/20 Range/Units 02:59 02:59 02:59 MCV 81 L (84-94) fl MCHC 35 H (32-34) % [place] % (Auto) 11.0 H (0.0-7.3) % Lymph # (Auto) 0.8 L (1.2-5.4) K/mm3 Seg Neutrophils % 75.2 H (40.0-70.0) % D-Dimer 494.03 H (0-234) ng/mlDDU Sodium 134 L (137-145) mmol/L Chloride 97.3 L (98-107) mmol/L Glucose 106 H (75-100) mg/dL Ferritin (30.0-300.0) ng/mL Lactate Dehydrogenase (91-180) units/L C-Reactive Protein (0.00-1.30) mg/dL Albumin 3.6 L (3.9-5) g/dL Coronavirus (PCR) (Negative) 10/30/20 10/30/20 10/30/20 Range/Units 02:59 03:02 07:36 MCV (84-94) fl MCHC (32-34) % [place] % (Auto) (0.0-7.3) % Lymph # (Auto) (1.2-5.4) K/mm3 Seg Neutrophils % (40.0-70.0) % D-Dimer 420.59 H (0-234) ng/mlDDU Sodium (137-145) mmol/L Chloride (98-107) mmol/L Glucose 108 H (75-100) mg/dL Ferritin 528.3 H (30.0-300.0) ng/mL Lactate Dehydrogenase 271 H (91-180) units/L C-Reactive Protein 8.30 H (0.00-1.30) mg/dL Albumin (3.9-5) g/dL Coronavirus (PCR) (Negative) 10/30/20 10/30/20 10/30/20 Range/Units 07:36 07:36 Unknown MCV (84-94) fl MCHC (32-34) % [place] % (Auto) (0.0-7.3) % Lymph # (Auto) (1.2-5.4) K/mm3 Seg Neutrophils % (40.0-70.0) % D-Dimer (0-234) ng/mlDDU Sodium (137-145) mmol/L Chloride (98-107) mmol/L Glucose 132 H (75-100) mg/dL Ferritin 520.3 H (30.0-300.0) ng/mL Lactate Dehydrogenase 285 H (91-180) units/L C-Reactive Protein 8.20 H (0.00-1.30) mg/dL Albumin (3.9-5) g/dL Coronavirus (PCR) Positive A (Negative) Assessment and Plan Cultures: Blood culture pending A/P: 40-year-old man past medical history morbid obesity, hypertension admitted with COVID-19 pneumonia #Severe COVID-19 pneumonia: Patient presented with a week of symptoms, chest x- ray with diffuse bilateral infiltrates #Acute hypoxemic respiratory failure: Likely secondary to COVID-19 infection. Currently on 4 L nasal cannula #Morbid obesity: Associated with worse COVID-19 outcomes Recs: -Start Dexamethasone 6 mg IV/PO daily for 10 days -Start Remdesivir 200 mg IV q day x 1 followed by 100 mg IV q day x 4 days. Monitor renal and hepatic function while receiving -Stopped antibiotics due to normal procalcitonin. -Obtain daily inflammatory markers - ferritin, Ddimer, CRP, LDH Thank you for the consult, we will continue to follow. Herman Brown MD [facility] ([facility] O: [phone] F: [phone]
[2020-10-30] MEDS ORDERED: REMDESIVIR 200 MG in SODIUM CHLORIDE 0.9% 250ML 250 ML IV ONE (17:00)
[2020-10-30] MEDS ORDERED: REMDESIVIR 100 MG VIAL IV ONE (17:00)
[2020-10-30] MEDS: SODIUM CHLORIDE 0.9% 50 ML IVPB IV SCH (19:15)
[2020-10-30] MEDS ORDERED: cefTRIAXone/NS 2 GM/100 ML 2 GM/100 ML BAG IV SCH (22:00)
[2020-10-31] MEDS: HEPARIN 5,000 UNIT/1 ML VIAL SUB-Q SCH ×2 (09:15→21:42)
[2020-10-31] MEDS: DEXAMETHASONE 4 MG TAB PO SCH ×2 (09:15→17:26)
[2020-10-31] MEDS ORDERED: AZITHROMYCIN 250 MG TAB PO SCH (10:00)
--- NOTE | 2020-10-31 11:27 | Progress Note ---
Assessment and Plan Cultures: Blood culture pending A/P: 40-year-old man past medical history morbid obesity, hypertension admitted with COVID-19 pneumonia #Severe COVID-19 pneumonia: Patient presented with a week of symptoms, chest x- ray with diffuse bilateral infiltrates #Acute hypoxemic respiratory failure: Likely secondary to COVID-19 infection. Currently on 4 L nasal cannula #Morbid obesity: Associated with worse COVID-19 outcomes Recs: -Start Dexamethasone 6 mg IV/PO daily for 10 days -Start Remdesivir 200 mg IV q day x 1 followed by 100 mg IV q day x 4 days. Monitor renal and hepatic function while receiving. D2 of 5. -Obtain daily inflammatory markers - ferritin, Ddimer, CRP, LDH Thank you for the consult, we will continue to follow. Dr. Muniz taking over tomorrow Herman Brown MD [facility] [place] [facility] O: [phone] F: [phone] Subjective Date of service: 10/31/20 Interval history: Afebrile, normal white count. No acute changes. Objective - Exam Narrative Exam: Physical exam deferred due to PPE conservation strategy. Please refer to primary team's note. - Constitutional Vitals: Vital Signs Temp Pulse Resp BP Pulse Ox 97.3 F L 65 16 128/75 94 10/31/20 06:11 10/31/20 06:11 10/31/20 06:11 10/31/20 06:11 10/31/20 06:11 Temperature -Last 24 Hours Temperature 97.3 F Temperature 98.7 F Temperature 98.3 F Temperature 97.9 F - Labs CBC & Chem 7: 10/30/20 02:59 10/30/20 07:36 Labs: Abnormal lab results 10/30/20 Range/Units Unknown Coronavirus (PCR) Positive A (Negative)
--- NOTE | 2020-10-31 11:58 | Progress Note ---
Assessment and Plan Assessment and plan: Patient is 40 year old male who presents to ED with history of cough , fever and weakness going on for about 10 days, patient later on developed history of shortness of breath about 4 days ago that became progressively worse to the extent that patient could not engage in mild activity and EMS was called and patient was found to be hypoxic and he was placed on oxygen with improvement in the shortness of breath.Patient recently tested positive to COVID -19 about 4 days prior to presentation. 10/31: Covid testing came back positive. Patient still with significant dyspnea. We will add vitamin D, vitamin C and zinc in addition to the remdesivir and steroid therapy. Continue to monitor liver and renal function. We will give a dose of Lasix today and check osmolality. Have requested a bedside commode for him due to significant shortness of breath. We will also obtain a pulmonary consultation to assist with management and advised the patient to lay prone. Will monitor oxygen daily. Weight loss counseling for 15 minutes. We will monitor inflammatory markers and also hypercoagulation protocol Acute hypoxic respiratory failure secondary to COVID-19 COVID-19 with pneumonia Morbid obesity Secondary coagulopathy History Interval history: Patient seen and examined this morning understands his diagnosis of Covid. He is seen sitting at the bedside reports significant shortness of breath with ambulation. Hospitalist Physical - Physical exam Narrative exam: VITAL SIGNS: Reviewed. GENERAL: The patient appears normally developed, anxious, with exertional dyspnea vital signs as documented. HEAD: No signs of head trauma. EYES: Pupils are equal. Extraocular motions intact. EARS: Hearing grossly intact. MOUTH: Oropharynx is normal. NECK: No adenopathy, no JVD. CHEST: Chest with diminished breath sounds bilaterally. No wheezes, rales, or rhonchi. CARDIAC: Regular rate and rhythm. S1 and S2, without murmurs, gallops, or rubs. VASCULAR: No Edema. Peripheral pulses normal and equal in all extremities. ABDOMEN: Soft, non tender and non distended. No rebound or guarding, and no masses palpated. Bowel Sounds normal. MUSCULOSKELETAL: Good range of motion of all major joints. Extremities without clubbing, cyanosis or edema. NEUROLOGIC EXAM: Alert and oriented x 3 No focal sensory or strength deficits. Speech normal. Follows commands. PSYCHIATRIC: Mood anxious. SKIN: detail exam as documented in skin assessment - Constitutional Vitals: Temp Pulse Resp BP Pulse Ox 97.3 F L 65 16 128/75 94 10/31/20 06:11 10/31/20 06:11 10/31/20 06:11 10/31/20 06:11 10/31/20 06:11 General appearance: Present: no acute distress HEART Score - HEART Score Risk factors: 1-2 risk factors Troponin: < normal limit - Critical Actions Critical Actions: 0-3 pts:0.9-1.7%risk of adverse cardiac event.Candidate for discharge Results - Labs CBC & Chem 7: 10/30/20 02:59 10/30/20 07:36 Labs: Laboratory Last Values WBC 6.2 K/mm3 (4.5-11.0) 10/30/20 02:59 RBC 4.50 M/mm3 (3.65-5.03) 10/30/20 02:59 Hgb 12.7 gm/dl (11.8-15.2) 10/30/20 02:59 Hct 36.6 % (35.5-45.6) 10/30/20 02:59 MCV 81 fl (84-94) L 10/30/20 02:59 MCH 28 pg (28-32) 10/30/20 02:59 MCHC 35 % (32-34) H 10/30/20 02:59 RDW 13.2 % (13.2-15.2) 10/30/20 02:59 Plt Count 158 K/mm3 (140-440) 10/30/20 02:59 Lymph % (Auto) 13.7 % (13.4-35.0) 10/30/20 02:59 [place] % (Auto) 11.0 % (0.0-7.3) H 10/30/20 02:59 Eos % (Auto) 0.0 % (0.0-4.3) 10/30/20 02:59 Baso % (Auto) 0.1 % (0.0-1.8) 10/30/20 02:59 Lymph # (Auto) 0.8 K/mm3 (1.2-5.4) L 10/30/20 02:59 [place] # (Auto) 0.7 K/mm3 (0.0-0.8) 10/30/20 02:59 Eos # (Auto) 0.0 K/mm3 (0.0-0.4) 10/30/20 02:59 Baso # (Auto) 0.0 K/mm3 (0.0-0.1) 10/30/20 02:59 Seg Neutrophils % 75.2 % (40.0-70.0) H 10/30/20 02:59 Seg Neutrophils # 4.6 K/mm3 (1.8-7.7) 10/30/20 02:59 D-Dimer 420.59 ng/mlDDU (0-234) H 10/30/20 07:36 Sodium 134 mmol/L (137-145) L 10/30/20 02:59 Potassium 3.7 mmol/L (3.6-5.0) 10/30/20 02:59 Chloride 97.3 mmol/L (98-107) L 10/30/20 02:59 Carbon Dioxide 24 mmol/L (22-30) 10/30/20 02:59 Anion Gap 16 mmol/L 10/30/20 02:59 BUN 13 mg/dL (9-20) 10/30/20 02:59 Creatinine 0.9 mg/dL (0.8-1.3) 10/30/20 02:59 Estimated GFR > 60 ml/min 10/30/20 02:59 BUN/Creatinine Ratio 14 % 10/30/20 02:59 Glucose 132 mg/dL (75-100) H 10/30/20 07:36 Lactic Acid 1.60 mmol/L (0.7-2.0) 10/30/20 06:57 Calcium 8.4 mg/dL (8.4-10.2) 10/30/20 02:59 Ferritin 520.3 ng/mL (30.0-300.0) H 10/30/20 07:36 Total Bilirubin 0.50 mg/dL (0.1-1.2) 10/30/20 02:59 AST 34 units/L (5-40) 10/30/20 02:59 ALT 55 units/L (7-56) 10/30/20 02:59 Alkaline Phosphatase 62 units/L (35-129) 10/30/20 02:59 Lactate Dehydrogenase 285 units/L (91-180) H 10/30/20 07:36 C-Reactive Protein 8.20 mg/dL (0.00-1.30) H 10/30/20 07:36 Total Protein 7.4 g/dL (6.3-8.2) 10/30/20 02:59 Albumin 3.6 g/dL (3.9-5) L 10/30/20 02:59 Albumin/Globulin Ratio 0.9 % 10/30/20 02:59 Procalcitonin < 0.05 ng/mL (<0.15) 10/30/20 07:36 Urine Color Yellow (Yellow) 10/30/20 Unknown Urine Turbidity Clear (Clear) 10/30/20 Unknown Urine pH 5.0 (5.0-7.0) 10/30/20 Unknown Ur Specific [place] 1.025 (1.003-1.030) 10/30/20 Unknown Urine Protein 30 mg/dl mg/dL (Negative) 10/30/20 Unknown Urine Glucose (UA) Neg mg/dL (Negative) 10/30/20 Unknown Urine Ketones Neg mg/dL (Negative) 10/30/20 Unknown Urine Blood Sm (Negative) 10/30/20 Unknown Urine Nitrite Neg (Negative) 10/30/20 Unknown Urine Bilirubin Neg (Negative) 10/30/20 Unknown Urine Urobilinogen 2.0 mg/dL (<2.0) 10/30/20 Unknown Ur Leukocyte Esterase Neg (Negative) 10/30/20 Unknown Urine WBC (Auto) 6.0 /HPF (0.0-6.0) 10/30/20 Unknown Urine RBC (Auto) 1.0 /HPF (0.0-6.0) 10/30/20 Unknown U Epithel Cells (Auto) 1.0 /HPF (0-13.0) 10/30/20 Unknown Urine Bacteria (Auto) 1+ /HPF (Negative) 10/30/20 Unknown Urine Mucus Few /HPF 10/30/20 Unknown Coronavirus (PCR) Positive (Negative) A 10/30/20 Unknown Microbiology: Microbiology 10/30/20 02:59 Peripheral/Venous Blood Culture - Preliminary NO GROWTH AFTER 24 HOURS 10/30/20 02:59 Peripheral/Venous Blood Culture - Preliminary NO GROWTH AFTER 24 HOURS [place]/IV: Voiding Method Toilet IV Catheter Type [left adc] Peripheral IV IV Catheter Type [Right Hand] INT / Saline Lock IV Catheter Type [Left Upper Peripheral IV arm] Active Medications - Current Medications Current Medications: Generic Name Dose Route Start Last Admin Trade Name Freq PRN Reason Stop Dose Admin Acetaminophen 650 mg 10/30/20 04:31 Tylenol PO Q4H PRN Fever >101 Dexamethasone 6 mg 10/30/20 10:00 10/31/20 09:15 Decadron PO 11/08/20 10:01 6 mg DAILY EVER Administration Heparin Sodium (Porcine) 5,000 unit 10/30/20 10:00 10/31/20 09:15 Heparin SUB-Q 5,000 unit Q12HR EVER Administration REMDESIVIR 100 mg/ Sodium 250 mls @ 500 mls/hr 10/31/20 21:00 Chloride IV 11/03/20 21:29 Q24HR@2100 [facility] Ondansetron HCl 4 mg 10/30/20 04:34 Zofran IV Q8H PRN Nausea And Vomiting Sodium Chloride 50 ml 10/30/20 17:30 10/30/20 19:15 Nacl 0.9% IV 11/03/20 21:31 Not Given Q24HR@2130 [facility]
[2020-10-31] MEDS ORDERED: FUROSEMIDE 40 MG/4 ML INJ IV SCH (13:00)
[2020-10-31] MEDS: CHOLECALCIFEROL (VIT D3) 5,000 UNIT TAB PO SCH (17:42)
[2020-10-31] MEDS: ASCORBIC ACID 500 MG TAB PO SCH (21:42)
[2020-10-31] MEDS: SODIUM CHLORIDE 0.9% 50 ML IVPB IV SCH (21:42)
[2020-10-31] MEDS: ZINC SULFATE 220 MG CAP PO SCH (21:42)
[2020-10-31] MEDS: REMDESIVIR 100 MG in SODIUM CHLORIDE 0.9% 250ML 250 ML IV SCH (21:42)
[2020-11-01 06:33] LABS: Hematocrit 37.4 % (35.5-45.6); Hemoglobin 12.6 gm/dl (11.8-15.2); Mean Corpuscular HGB Conc 34 % (32-34); Mean Corpuscular Volume 82 fl (84-94); Platelet Count 230 K/mm3 (140-440); Red Blood Count 4.54 M/mm3 (3.65-5.03); Red Cell Distribution Width 13.3 % (13.2-15.2)
[2020-11-01 07:03] LABS: BUN/Creatinine Ratio 25
[2020-11-01 07:05] LABS: Blood Urea Nitrogen 20 mg/dL (9-20); Calcium 8.7 mg/dL (8.4-10.2); Hemolysis Index 5
[2020-11-01] MEDS ORDERED: FUROSEMIDE 40 MG/4 ML INJ IV ONE (08:15)
--- NOTE | 2020-11-01 08:17 | Event Note ---
Date: 11/01/20 Full consult to follow. 40 yo with acute respiratory failure secondary to COVID 19. D-Dimer has almost tripled in the last 24 hours. However O2 requirement only increased one liter. If work of breathing is worse, would suggest empiric anticoagulation. If possible, would obtain CTA of chest. If not at least LE dopplers bilaterally. Continue steroids. Gave lasix 40mg IV x1 today. Guarded prognosis. Patient not examined in person to preserve PPE during the global pandemic of COVID 19
--- NOTE | 2020-11-01 08:35 | Progress Note ---
Assessment and Plan Assessment and plan: Patient is 40 year old male who presents to ED with history of cough , fever and weakness going on for about 10 days, patient later on developed history of shortness of breath about 4 days ago that became progressively worse to the extent that patient could not engage in mild activity and EMS was called and patient was found to be hypoxic and he was placed on oxygen with improvement in the shortness of breath.Patient recently tested positive to COVID -19 about 4 days prior to presentation. 10/31: Covid testing came back positive. Patient still with significant dyspnea. We will add vitamin D, vitamin C and zinc in addition to the remdesivir and steroid therapy. Continue to monitor liver and renal function. We will give a dose of Lasix today and check osmolality. Have requested a bedside commode for him due to significant shortness of breath. We will also obtain a pulmonary consultation to assist with management and advised the patient to lay prone. Will monitor oxygen daily. Weight loss counseling for 15 minutes. We will monitor inflammatory markers and also hypercoagulation protocol 11/01: Start on full anticogulation, obtain CTA chest and LE doppler. Continue steroids. Patient received lasix 40mg IV x1 today. May give additional lasix today if renal function remains stable. Continue to encourage prone positioning. Guarded prognosis. Acute hypoxic respiratory failure secondary to COVID-19 COVID-19 with pneumonia Morbid obesity Secondary coagulopathy History Interval history: Patient seen and examined this morning understands his diagnosis of Covid. Clinically showing some improvement although still with some shortness of breath Hospitalist Physical - Physical exam Narrative exam: VITAL SIGNS: Reviewed. GENERAL: The patient appears normally developed, anxious, with exertional dyspnea vital signs as documented. HEAD: No signs of head trauma. EYES: Pupils are equal. Extraocular motions intact. EARS: Hearing grossly intact. MOUTH: Oropharynx is normal. NECK: No adenopathy, no JVD. CHEST: Chest with diminished breath sounds bilaterally. No wheezes, rales, or rhonchi. CARDIAC: Regular rate and rhythm. S1 and S2, without murmurs, gallops, or rubs. VASCULAR: No Edema. Peripheral pulses normal and equal in all extremities. ABDOMEN: Soft, non tender and non distended. No rebound or guarding, and no masses palpated. Bowel Sounds normal. MUSCULOSKELETAL: Good range of motion of all major joints. Extremities without clubbing, cyanosis or edema. NEUROLOGIC EXAM: Alert and oriented x 3 No focal sensory or strength deficits. Speech normal. Follows commands. PSYCHIATRIC: Mood anxious. SKIN: detail exam as documented in skin assessment - Constitutional Vitals: Temp Pulse Resp BP Pulse Ox 98.5 F 64 20 135/82 92 11/01/20 05:01 11/01/20 05:01 11/01/20 05:01 11/01/20 05:01 11/01/20 05:01 General appearance: Present: no acute distress HEART Score - HEART Score Risk factors: 1-2 risk factors Troponin: < normal limit - Critical Actions Critical Actions: 0-3 pts:0.9-1.7%risk of adverse cardiac event.Candidate for discharge Results - Labs CBC & Chem 7: 11/01/20 04:29 11/01/20 04:29 Labs: Laboratory Last Values WBC 6.7 K/mm3 (4.5-11.0) 11/01/20 04:29 RBC 4.54 M/mm3 (3.65-5.03) 11/01/20 04:29 Hgb 12.6 gm/dl (11.8-15.2) 11/01/20 04:29 Hct 37.4 % (35.5-45.6) 11/01/20 04:29 MCV 82 fl (84-94) L 11/01/20 04:29 MCH 28 pg (28-32) 11/01/20 04:29 MCHC 34 % (32-34) 11/01/20 04:29 RDW 13.3 % (13.2-15.2) 11/01/20 04:29 Plt Count 230 K/mm3 (140-440) 11/01/20 04:29 Lymph % (Auto) 13.7 % (13.4-35.0) 10/30/20 02:59 [place] % (Auto) 11.0 % (0.0-7.3) H 10/30/20 02:59 Eos % (Auto) 0.0 % (0.0-4.3) 10/30/20 02:59 Baso % (Auto) 0.1 % (0.0-1.8) 10/30/20 02:59 Lymph # (Auto) 0.8 K/mm3 (1.2-5.4) L 10/30/20 02:59 [place] # (Auto) 0.7 K/mm3 (0.0-0.8) 10/30/20 02:59 Eos # (Auto) 0.0 K/mm3 (0.0-0.4) 10/30/20 02:59 Baso # (Auto) 0.0 K/mm3 (0.0-0.1) 10/30/20 02:59 Seg Neutrophils % 75.2 % (40.0-70.0) H 10/30/20 02:59 Seg Neutrophils # 4.6 K/mm3 (1.8-7.7) 10/30/20 02:59 D-Dimer > 15022 ng/mlDDU (0-234) H 11/01/20 04:29 Sodium 140 mmol/L (137-145) 11/01/20 04:29 Potassium 3.7 mmol/L (3.6-5.0) 11/01/20 04:29 Chloride 104.6 mmol/L (98-107) 11/01/20 04:29 Carbon Dioxide 24 mmol/L (22-30) 11/01/20 04:29 Anion Gap 15 mmol/L 11/01/20 04:29 BUN 20 mg/dL (9-20) 11/01/20 04:29 Creatinine 0.8 mg/dL (0.8-1.3) 11/01/20 04:29 Estimated GFR > 60 ml/min 11/01/20 04:29 BUN/Creatinine Ratio 25 % 11/01/20 04:29 Glucose 111 mg/dL (75-100) H 11/01/20 04:29 Osmolality 297 Mosm/kg 10/31/20 13:52 Lactic Acid 1.60 mmol/L (0.7-2.0) 10/30/20 06:57 Calcium 8.7 mg/dL (8.4-10.2) 11/01/20 04:29 Ferritin 485.4 ng/mL (30.0-300.0) H 11/01/20 04:29 Total Bilirubin 0.50 mg/dL (0.1-1.2) 10/30/20 02:59 AST 34 units/L (5-40) 10/30/20 02:59 ALT 55 units/L (7-56) 10/30/20 02:59 Alkaline Phosphatase 62 units/L (35-129) 10/30/20 02:59 Lactate Dehydrogenase 230 units/L (91-180) H 11/01/20 04:29 C-Reactive Protein 8.20 mg/dL (0.00-1.30) H 10/30/20 07:36 Total Protein 7.4 g/dL (6.3-8.2) 10/30/20 02:59 Albumin 3.6 g/dL (3.9-5) L 10/30/20 02:59 Albumin/Globulin Ratio 0.9 % 10/30/20 02:59 Procalcitonin < 0.05 ng/mL (<0.15) 10/30/20 07:36 Urine Color Yellow (Yellow) 10/30/20 Unknown Urine Turbidity Clear (Clear) 10/30/20 Unknown Urine pH 5.0 (5.0-7.0) 10/30/20 Unknown Ur Specific [place] 1.025 (1.003-1.030) 10/30/20 Unknown Urine Protein 30 mg/dl mg/dL (Negative) 10/30/20 Unknown Urine Glucose (UA) Neg mg/dL (Negative) 10/30/20 Unknown Urine Ketones Neg mg/dL (Negative) 10/30/20 Unknown Urine Blood Sm (Negative) 10/30/20 Unknown Urine Nitrite Neg (Negative) 10/30/20 Unknown Urine Bilirubin Neg (Negative) 10/30/20 Unknown Urine Urobilinogen 2.0 mg/dL (<2.0) 10/30/20 Unknown Ur Leukocyte Esterase Neg (Negative) 10/30/20 Unknown Urine WBC (Auto) 6.0 /HPF (0.0-6.0) 10/30/20 Unknown Urine RBC (Auto) 1.0 /HPF (0.0-6.0) 10/30/20 Unknown U Epithel Cells (Auto) 1.0 /HPF (0-13.0) 10/30/20 Unknown Urine Bacteria (Auto) 1+ /HPF (Negative) 10/30/20 Unknown Urine Mucus Few /HPF 10/30/20 Unknown Coronavirus (PCR) Positive (Negative) A 10/30/20 Unknown SARS-CoV-2 IgG Ab Reactive (NonReactive) A 10/31/20 13:52 Microbiology: Microbiology 10/30/20 02:59 Peripheral/Venous Blood Culture - Preliminary NO GROWTH AFTER 48 HOURS 10/30/20 02:59 Peripheral/Venous Blood Culture - Preliminary NO GROWTH AFTER 48 HOURS 10/30/20 Unknown Urine,Clean Catch Urine Culture - Preliminary [place]/IV: Voiding Method Toilet IV Catheter Type [left adc] Peripheral IV IV Catheter Type [Left Hand] INT / Saline Lock IV Catheter Type [Right Hand] INT / Saline Lock IV Catheter Type [Left Upper Peripheral IV arm] Active Medications - Current Medications Current Medications: Generic Name Dose Route Start Last Admin Trade Name Freq PRN Reason Stop Dose Admin Acetaminophen 650 mg 10/30/20 04:31 Tylenol PO Q4H PRN Fever >101 Ascorbic Acid 1,000 mg 10/31/20 22:00 10/31/20 21:42 Vitamin C PO 1,000 mg BID EVER Administration Cholecalciferol 5,000 unit 10/31/20 14:00 10/31/20 17:42 Vitamin D3 PO 5,000 unit DAILY [facility] Administration Dexamethasone 8 mg 10/31/20 13:30 10/31/20 17:26 Decadron PO 11/07/20 10:01 Not Given DAILY [facility] Enoxaparin Sodium 100 mg 11/01/20 10:00 Enoxaparin SUB-Q Q12HR [facility] Protocol REMDESIVIR 100 mg/ Sodium 250 mls @ 500 mls/hr 10/31/20 21:00 10/31/20 21:42 Chloride IV 11/03/20 21:29 500 mls/hr Q24HR@2100 EVER Administration Ondansetron HCl 4 mg 10/30/20 04:34 Zofran IV Q8H PRN Nausea And Vomiting Sodium Chloride 50 ml 10/30/20 17:30 10/31/20 21:42 Nacl 0.9% IV 11/03/20 21:31 50 ml Q24HR@2130 EVER Administration Zinc Sulfate 220 mg 10/31/20 22:00 10/31/20 21:42 Zinc Sulfate PO 220 mg BID EVER Administration
[2020-11-01] MEDS: ENOXAPARIN 100 MG/1 ML INJ SUB-Q SCH ×2 (10:22→22:25)
[2020-11-01] MEDS: ZINC SULFATE 220 MG CAP PO SCH ×2 (10:23→22:25)
[2020-11-01] MEDS: DEXAMETHASONE 4 MG TAB PO SCH (10:23)
[2020-11-01] MEDS: ASCORBIC ACID 500 MG TAB PO SCH ×2 (10:24→22:25)
[2020-11-01] MEDS: CHOLECALCIFEROL (VIT D3) 5,000 UNIT TAB PO SCH (10:51)
--- NOTE | 2020-11-01 17:32 | Vascular Lab Report ---
DUPLEX DOPPLER LOWER EXTREMITY VEINS, BILATERAL INDICATION / CLINICAL INFORMATION: Leg swelling. TECHNIQUE: Duplex doppler imaging was performed through the veins of both lower extremities using venous pete leonarda and other maneuvers. COMPARISON: None available. FINDINGS: RIGHT COMMON FEMORAL VEIN: Negative. RIGHT FEMORAL VEIN: Negative. RIGHT POPLITEAL VEIN: Negative. RIGHT CALF VEINS: Negative. LEFT COMMON FEMORAL VEIN: Negative. LEFT FEMORAL VEIN: Negative. LEFT POPLITEAL VEIN: Negative. LEFT CALF VEINS: Negative. ADDITIONAL FINDINGS: None. IMPRESSION: 1. No sonographic evidence for DVT in either lower extremity. Signer Name: Nicolas Carter MD Signed: 11/01/2020 5:27 PM Workstation Name: [id number]
[2020-11-01] MEDS: SODIUM CHLORIDE 0.9% 50 ML IVPB IV SCH (22:25)
[2020-11-01] MEDS: REMDESIVIR 100 MG in SODIUM CHLORIDE 0.9% 250ML 250 ML IV SCH (22:26)
[2020-11-02 07:21] LABS: Blood Urea Nitrogen 19 mg/dL (9-20); Calcium 8.7 mg/dL (8.4-10.2); Hemolysis Index 2
[2020-11-02 07:27] LABS: BUN/Creatinine Ratio 27
--- NOTE | 2020-11-02 07:33 | Progress Note ---
Assessment and Plan Assessment and plan: Patient is 40 year old male who presents to ED with history of cough , fever and weakness going on for about 10 days, patient later on developed history of shortness of breath about 4 days ago that became progressively worse to the extent that patient could not engage in mild activity and EMS was called and patient was found to be hypoxic and he was placed on oxygen with improvement in the shortness of breath.Patient recently tested positive to COVID -19 about 4 days prior to presentation. 10/31: Covid testing came back positive. Patient still with significant dyspnea. We will add vitamin D, vitamin C and zinc in addition to the remdesivir and steroid therapy. Continue to monitor liver and renal function. We will give a dose of Lasix today and check osmolality. Have requested a bedside commode for him due to significant shortness of breath. We will also obtain a pulmonary consultation to assist with management and advised the patient to lay prone. Will monitor oxygen daily. Weight loss counseling for 15 minutes. We will monitor inflammatory markers and also hypercoagulation protocol 11/01: Start on full anticogulation, obtain CTA chest and LE doppler. Continue steroids. Patient received lasix 40mg IV x1 today. May give additional lasix today if renal function remains stable. Continue to encourage prone positioning. Guarded prognosis. 11/02: Begin weaning oxygen as tolerated. Await CTA. If worsening hypoxia will give additional dose of Lasix today while monitoring renal function. Lower extremity Dopplers negative. Acute hypoxic respiratory failure secondary to COVID-19 COVID-19 with pneumonia Morbid obesity Secondary coagulopathy History Interval history: Patient seen and examined this morning sitting up at the bedside reports some improvement. O2 at the time of the room is actually at 3 L. Hospitalist Physical - Physical exam Narrative exam: VITAL SIGNS: Reviewed. GENERAL: The patient appears normally developed, anxious, with exertional d yspnea vital signs as documented. HEAD: No signs of head trauma. EYES: Pupils are equal. Extraocular motions intact. EARS: Hearing grossly intact. MOUTH: Oropharynx is normal. NECK: No adenopathy, no JVD. CHEST: Chest with diminished breath sounds bilaterally. No wheezes, rales, or rhonchi. CARDIAC: Regular rate and rhythm. S1 and S2, without murmurs, gallops, or rubs. VASCULAR: No Edema. Peripheral pulses normal and equal in all extremities. ABDOMEN: Soft, non tender and non distended. No rebound or guarding, and no masses palpated. Bowel Sounds normal. MUSCULOSKELETAL: Good range of motion of all major joints. Extremities without clubbing, cyanosis or edema. NEUROLOGIC EXAM: Alert and oriented x 3 No focal sensory or strength deficits. Speech normal. Follows commands. PSYCHIATRIC: Mood anxious. SKIN: detail exam as documented in skin assessment - Constitutional Vitals: Temp Pulse Resp BP Pulse Ox 97.3 F L 58 L 20 152/93 95 11/02/20 06:14 11/02/20 06:14 11/02/20 06:14 11/02/20 06:14 11/02/20 06:14 General appearance: Present: no acute distress HEART Score - HEART Score Risk factors: 1-2 risk factors Troponin: < normal limit - Critical Actions Critical Actions: 0-3 pts:0.9-1.7%risk of adverse cardiac event.Candidate for discharge Results - Labs CBC & Chem 7: 11/01/20 04:29 11/02/20 04:27 Labs: Laboratory Last Values WBC 6.7 K/mm3 (4.5-11.0) 11/01/20 04:29 RBC 4.54 M/mm3 (3.65-5.03) 11/01/20 04:29 Hgb 12.6 gm/dl (11.8-15.2) 11/01/20 04:29 Hct 37.4 % (35.5-45.6) 11/01/20 04:29 MCV 82 fl (84-94) L 11/01/20 04:29 MCH 28 pg (28-32) 11/01/20 04:29 MCHC 34 % (32-34) 11/01/20 04:29 RDW 13.3 % (13.2-15.2) 11/01/20 04:29 Plt Count 230 K/mm3 (140-440) 11/01/20 04:29 Lymph % (Auto) 13.7 % (13.4-35.0) 10/30/20 02:59 [place] % (Auto) 11.0 % (0.0-7.3) H 10/30/20 02:59 Eos % (Auto) 0.0 % (0.0-4.3) 10/30/20 02:59 Baso % (Auto) 0.1 % (0.0-1.8) 10/30/20 02:59 Lymph # (Auto) 0.8 K/mm3 (1.2-5.4) L 10/30/20 02:59 [place] # (Auto) 0.7 K/mm3 (0.0-0.8) 10/30/20 02:59 Eos # (Auto) 0.0 K/mm3 (0.0-0.4) 10/30/20 02:59 Baso # (Auto) 0.0 K/mm3 (0.0-0.1) 10/30/20 02:59 Seg Neutrophils % 75.2 % (40.0-70.0) H 10/30/20 02:59 Seg Neutrophils # 4.6 K/mm3 (1.8-7.7) 10/30/20 02:59 D-Dimer > 36286 ng/mlDDU (0-234) H 11/01/20 04:29 Sodium 142 mmol/L (137-145) 11/02/20 04:27 Potassium 3.8 mmol/L (3.6-5.0) 11/02/20 04:27 Chloride 105.3 mmol/L (98-107) 11/02/20 04:27 Carbon Dioxide 22 mmol/L (22-30) 11/02/20 04:27 Anion Gap 19 mmol/L 11/02/20 04:27 BUN 19 mg/dL (9-20) 11/02/20 04:27 Creatinine 0.7 mg/dL (0.8-1.3) L 11/02/20 04:27 Estimated GFR > 60 ml/min 11/02/20 04:27 BUN/Creatinine Ratio 27 % 11/02/20 04:27 Glucose 96 mg/dL (75-100) 11/02/20 04:27 Osmolality 297 Mosm/kg 10/31/20 13:52 Lactic Acid 1.60 mmol/L (0.7-2.0) 10/30/20 06:57 Calcium 8.7 mg/dL (8.4-10.2) 11/02/20 04:27 Ferritin 485.4 ng/mL (30.0-300.0) H 11/01/20 04:29 Total Bilirubin 0.50 mg/dL (0.1-1.2) 10/30/20 02:59 AST 34 units/L (5-40) 10/30/20 02:59 ALT 55 units/L (7-56) 10/30/20 02:59 Alkaline Phosphatase 62 units/L (35-129) 10/30/20 02:59 Lactate Dehydrogenase 230 units/L (91-180) H 11/01/20 04:29 C-Reactive Protein 8.20 mg/dL (0.00-1.30) H 10/30/20 07:36 Total Protein 7.4 g/dL (6.3-8.2) 10/30/20 02:59 Albumin 3.6 g/dL (3.9-5) L 10/30/20 02:59 Albumin/Globulin Ratio 0.9 % 10/30/20 02:59 Procalcitonin < 0.05 ng/mL (<0.15) 10/30/20 07:36 Urine Color Yellow (Yellow) 10/30/20 Unknown Urine Turbidity Clear (Clear) 10/30/20 Unknown Urine pH 5.0 (5.0-7.0) 10/30/20 Unknown Ur Specific [place] 1.025 (1.003-1.030) 10/30/20 Unknown Urine Protein 30 mg/dl mg/dL (Negative) 10/30/20 Unknown Urine Glucose (UA) Neg mg/dL (Negative) 10/30/20 Unknown Urine Ketones Neg mg/dL (Negative) 10/30/20 Unknown Urine Blood Sm (Negative) 10/30/20 Unknown Urine Nitrite Neg (Negative) 10/30/20 Unknown Urine Bilirubin Neg (Negative) 10/30/20 Unknown Urine Urobilinogen 2.0 mg/dL (<2.0) 10/30/20 Unknown Ur Leukocyte Esterase Neg (Negative) 10/30/20 Unknown Urine WBC (Auto) 6.0 /HPF (0.0-6.0) 10/30/20 Unknown Urine RBC (Auto) 1.0 /HPF (0.0-6.0) 10/30/20 Unknown U Epithel Cells (Auto) 1.0 /HPF (0-13.0) 10/30/20 Unknown Urine Bacteria (Auto) 1+ /HPF (Negative) 10/30/20 Unknown Urine Mucus Few /HPF 10/30/20 Unknown Coronavirus (PCR) Positive (Negative) A 10/30/20 Unknown SARS-CoV-2 IgG Ab Reactive (NonReactive) A 10/31/20 13:52 Microbiology: Microbiology 10/30/20 02:59 Peripheral/Venous Blood Culture - Preliminary NO GROWTH AFTER 72 HOURS 10/30/20 02:59 Peripheral/Venous Blood Culture - Preliminary NO GROWTH AFTER 72 HOURS 10/30/20 Unknown Urine,Clean Catch Urine Culture - Final [place]/IV: Voiding Method Toilet IV Catheter Type [left adc] Peripheral IV IV Catheter Type [Left Hand] INT / Saline Lock IV Catheter Type [Right Hand] INT / Saline Lock IV Catheter Type [Left Upper Peripheral IV arm] Active Medications - Current Medications Current Medications: Generic Name Dose Route Start Last Admin Trade Name Freq PRN Reason Stop Dose Admin Acetaminophen 650 mg 10/30/20 04:31 Tylenol PO Q4H PRN Fever >101 Ascorbic Acid 1,000 mg 10/31/20 22:00 11/01/20 22:25 Vitamin C PO 1,000 mg BID EVER Administration Cholecalciferol 5,000 unit 10/31/20 14:00 11/01/20 10:51 Vitamin D3 PO 5,000 unit DAILY EVER Administration Dexamethasone 8 mg 10/31/20 13:30 11/01/20 10:23 Decadron PO 11/07/20 10:01 8 mg DAILY EVER Administration Enoxaparin Sodium 100 mg 11/01/20 10:00 11/01/20 22:25 Enoxaparin SUB-Q 100 mg Q12HR EVER Administration Protocol REMDESIVIR 100 mg/ Sodium 250 mls @ 500 mls/hr 10/31/20 21:00 11/01/20 22:26 Chloride IV 11/03/20 21:29 500 mls/hr Q24HR@2100 EVER Administration Ondansetron HCl 4 mg 10/30/20 04:34 Zofran IV Q8H PRN Nausea And Vomiting Sodium Chloride 50 ml 10/30/20 17:30 11/01/20 22:25 Nacl 0.9% IV 11/03/20 21:31 50 ml Q24HR@2130 EVER Administration Zinc Sulfate 220 mg 10/31/20 22:00 11/01/20 22:25 Zinc Sulfate PO 220 mg BID EVER Administration
--- NOTE | 2020-11-02 08:06 | Consultation ---
History of Present Illness Consult date: 11/02/20 Requesting physician: CORBY SANFORD Reason for consult: hypoxemia, other (COVID) History of present illness: 40 y/o male with acute respiratory failure secondary to COVID 19 pneumonia. Past History Past Medical History: hypertension Past Surgical History: No surgical history Social history: no significant social history Family history: no significant family history Medications and Allergies Allergies Allergy/AdvReac Type Severity Reaction Status Date / Time No Known Allergies Allergy Verified 12/22/16 06:27 Home Medications Medication Instructions Recorded Confirmed Last Taken Type Lisinopril 20 mg PO DAILY 10/30/20 10/30/20 10/29/20 History Procardia 60 mg PO DAILY 10/30/20 10/31/20 10/29/20 History Atenolol 25 mg PO DAILY 10/31/20 10/31/20 10/29/20 History HCTZ 25 mg PO DAILY 10/31/20 10/31/20 Unknown History Active Meds: Active Medications Acetaminophen (Tylenol) 650 mg PO Q4H PRN PRN Reason: Fever >101 Ascorbic Acid (Vitamin C) 1,000 mg PO BID [facility] Last Admin: 11/01/20 22:25 Dose: 1,000 mg Documented by: Cholecalciferol (Vitamin D3) 5,000 unit PO DAILY [facility] Last Admin: 11/01/20 10:51 Dose: 5,000 unit Documented by: Dexamethasone (Decadron) 8 mg PO DAILY [facility] Stop: 11/07/20 10:01 Last Admin: 11/01/20 10:23 Dose: 8 mg Documented by: Enoxaparin Sodium (Enoxaparin) 100 mg SUB-Q Q12HR [facility]; Protocol Last Admin: 11/01/20 22:25 Dose: 100 mg Documented by: REMDESIVIR 100 mg/ Sodium (Chloride) 250 mls @ 500 mls/hr IV Q24HR@2100 [facility] Stop: 11/03/20 21:29 Last Admin: 11/01/20 22:26 Dose: 500 mls/hr Documented by: Ondansetron HCl (Zofran) 4 mg IV Q8H PRN PRN Reason: Nausea And Vomiting Sodium Chloride (Nacl 0.9%) 50 ml IV Q24HR@2130 [facility] Stop: 11/03/20 21:31 Last Admin: 11/01/20 22:25 Dose: 50 ml Documented by: Zinc Sulfate (Zinc Sulfate) 220 mg PO BID EVER Last Admin: 11/01/20 22:25 Dose: 220 mg Documented by: Physical Examination Vital signs: Vital Signs Pulse Resp Pulse Ox 93 H 31 H 95 10/30/20 02:20 10/30/20 02:20 10/30/20 02:20 Patient not examined in person to preserve PPE during the global Pandemic of COVID 19 Results - Laboratory Findings CBC and BMP: 11/01/20 04:29 11/02/20 04:27 PT/INR, D-dimer D-Dimer > 84634 ng/mlDDU (0-234) H 11/01/20 04:29 Abnormal lab findings: Abnormal Labs 10/30/20 10/30/20 10/30/20 02:59 02:59 02:59 MCV 81 L MCHC 35 H [place] % (Auto) 11.0 H Lymph # (Auto) 0.8 L Seg Neutrophils % 75.2 H D-Dimer 494.03 H Sodium 134 L Chloride 97.3 L Creatinine Glucose 106 H Ferritin Lactate Dehydrogenase C-Reactive Protein Albumin 3.6 L Coronavirus (PCR) SARS-CoV-2 IgG Ab 10/30/20 10/30/20 10/30/20 02:59 03:02 07:36 MCV MCHC [place] % (Auto) Lymph # (Auto) Seg Neutrophils % D-Dimer 420.59 H Sodium Chloride Creatinine Glucose 108 H Ferritin 528.3 H Lactate Dehydrogenase 271 H C-Reactive Protein 8.30 H Albumin Coronavirus (PCR) SARS-CoV-2 IgG Ab 10/30/20 10/30/20 10/30/20 07:36 07:36 Unknown MCV MCHC [place] % (Auto) Lymph # (Auto) Seg Neutrophils % D-Dimer Sodium Chloride Creatinine Glucose 132 H Ferritin 520.3 H Lactate Dehydrogenase 285 H C-Reactive Protein 8.20 H Albumin Coronavirus (PCR) Positive A SARS-CoV-2 IgG Ab 10/31/20 11/01/20 11/01/20 13:52 04:29 04:29 MCV 82 L MCHC [place] % (Auto) Lymph # (Auto) Seg Neutrophils % D-Dimer > 66135 H Sodium Chloride Creatinine Glucose Ferritin Lactate Dehydrogenase C-Reactive Protein Albumin Coronavirus (PCR) SARS-CoV-2 IgG Ab Reactive A 11/01/20 11/01/20 11/02/20 04:29 04:29 04:27 MCV MCHC [place] % (Auto) Lymph # (Auto) Seg Neutrophils % D-Dimer Sodium Chloride Creatinine 0.7 L Glucose 111 H Ferritin 485.4 H Lactate Dehydrogenase 230 H C-Reactive Protein Albumin Coronavirus (PCR) SARS-CoV-2 IgG Ab - Diagnostic Findings Chest x-ray: image reviewed Assessment and Plan 40 y/o male with acute respiratory failure secondary to COVID 19 pneumonia and obesity with HTN 1. Steroids, IV remdesivir and prone as much as tolerated during the day and sleep prone at night 2. HTN control per primary 3. No additional IVF's unless patient is not eating and drinking normally 4. Guarded prognosis given obesity.
[2020-11-02] MEDS: ASCORBIC ACID 500 MG TAB PO SCH ×2 (09:52→21:36)
[2020-11-02] MEDS: ZINC SULFATE 220 MG CAP PO SCH ×2 (09:52→21:37)
[2020-11-02] MEDS: DEXAMETHASONE 4 MG TAB PO SCH (09:52)
[2020-11-02] MEDS: CHOLECALCIFEROL (VIT D3) 5,000 UNIT TAB PO SCH (09:53)
[2020-11-02] MEDS: ENOXAPARIN 100 MG/1 ML INJ SUB-Q SCH ×2 (09:53→21:37)
--- NOTE | 2020-11-02 12:53 | Cat Scan Report ---
CTA CHEST WITH IV CONTRAST INDICATION: Cough, COVID infection. TECHNIQUE: Axial CT images were obtained through the chest after injection of 100 cc IV contrast. 3 plane MIP re constructions were produced. All CT scans at this location are performed using CT dose reduction for ALARA by means of automated exposure control. COMPARISON: CTA chest 12/22/2016 FINDINGS: Somewhat limited by moderate respiratory motion artifact PULMONARY ARTERIES: No pulmonary emboli. THORACIC AORTA: No acute abnormality. HEART: Normal. CORONARY ARTERIES: No significant calcification. PLEURA: No pleural effusion. No pneumothorax. LYMPH NODES: No significant adenopathy. LUNGS: Moderate airspace consolidation both lower lobes with patchy air space disease within lingula. ADDITIONAL FINDINGS: None. UPPER ABDOMEN: Moderate decreased attenuation throughout liver characteristic for steatosis SKELETAL STRUCTURES: No significant osseous abnormality. IMPRESSION: 1. No CT evidence for pulmonary embolism. 2. Bilateral bronchopneumonia 3. Moderate hepatic steatosis. Signer Name: Nciolas Carter MD Signed: 11/02/2020 12:49 PM Workstation Name: [id number]
[2020-11-02] MEDS: SODIUM CHLORIDE 0.9% 50 ML IVPB IV SCH (21:36)
[2020-11-02] MEDS: REMDESIVIR 100 MG in SODIUM CHLORIDE 0.9% 250ML 250 ML IV SCH (21:36)
[2020-11-03] MEDS: CHOLECALCIFEROL (VIT D3) 5,000 UNIT TAB PO SCH (10:32)
[2020-11-03] MEDS: ASCORBIC ACID 500 MG TAB PO SCH ×2 (10:33→23:16)
[2020-11-03] MEDS: DEXAMETHASONE 4 MG TAB PO SCH (10:33)
[2020-11-03] MEDS: ENOXAPARIN 100 MG/1 ML INJ SUB-Q SCH ×2 (10:33→23:17)
[2020-11-03] MEDS: ZINC SULFATE 220 MG CAP PO SCH ×2 (10:33→23:16)
--- NOTE | 2020-11-03 11:52 | Progress Note ---
Subjective Date of service: 11/03/20 Interval history: Patient is 40 year old male who presents to ED with history of cough , fever and weakness going on for about 10 days, patient later on developed history of shortness of breath about 4 days ago that became progressively worse to the extent that patient could not engage in mild activity and EMS was called and patient was found to be hypoxic and he was placed on oxygen with improvement in the shortness of breath.Patient recently tested positive to COVID -19 about 4 days prior to presentation. 10/31: Covid testing came back positive. Patient still with significant dyspnea. We will add vitamin D, vitamin C and zinc in addition to the remdesivir and steroid therapy. Continue to monitor liver and renal function. We will give a dose of Lasix today and check osmolality. Have requested a bedside commode for him due to significant shortness of breath. We will also obtain a pulmonary consultation to assist with management and advised the patient to lay prone. Will monitor oxygen daily. Weight loss counseling for 15 minutes. We will monitor inflammatory markers and also hypercoagulation protocol 11/01: Start on full anticogulation, obtain CTA chest and LE doppler. Continue steroids. Patient received lasix 40mg IV x1 today. May give additional lasix today if renal function remains stable. Continue to encourage prone positioning. Guarded prognosis. 11/02: Begin weaning oxygen as tolerated. Await CTA. If worsening hypoxia will give additional dose of Lasix today while monitoring renal function. Lower extremity Dopplers negative. 11/03 patient is alert and oriented and offers no specific complaints and states that he is getting better every day. He is able to ambulate to the restroom with oxygen which she was unable to couple of days ago. Denies fever or chills. lab results reviewed. ID and pulmonary notes reviewed A/P Acute hypoxic respiratory failure secondary to COVID-19 Continue oxygen via nasal cannula at 4 L Slow improvement Pulmonary note reviewed COVID-19 pneumonitis ID note reviewed Continue remdesivir day 4 cont. Decadron day 4 inflammatory markers reviewed and are improving Morbid obesity Counseling on weight loss and diet and exercise was done Secondary coagulopathy D-dimer was 10,000 yesterday but it has dropped to 147 today- ? Lab error Continue DVT prophylaxis Objective - Constitutional Vitals: Vital Signs - 12hr 11/03/20 04:22 Temperature 98.0 F Pulse Rate 59 L Respiratory 20 Rate Blood Pressure 146/92 O2 Sat by Pulse 93 Oximetry General appearance: Present: no acute distress, well-nourished - EENT Eyes: PERRL, EOM intact ENT: hearing intact, clear oral mucosa - Neck Neck: supple, normal ROM - Respiratory Respiratory effort: normal Respiratory: bilateral: CTA - Cardiovascular Rhythm: regular Heart Sounds: Present: S1 & S2 Extremities: No edema - Gastrointestinal General gastrointestinal: Present: soft, non-tender Rectal Exam: deferred - Genitourinary Male genitourinary: deferred - Integumentary Integumentary: clear - Musculoskeletal Musculoskeletal: strength equal bilaterally - Labs CBC & Chem 7: 11/01/20 04:29 11/02/20 04:27 Labs: Abnormal lab results 11/03/20 11/03/20 Range/Units 04:28 04:28 Ferritin 364.8 H (30.0-300.0) ng/mL Lactate Dehydrogenase 210 H (91-180) units/L HEART Score - HEART Score Risk factors: 1-2 risk factors Troponin: < normal limit - Critical Actions Critical Actions: 0-3 pts:0.9-1.7%risk of adverse cardiac event.Candidate for discharge
--- NOTE | 2020-11-03 13:14 | Progress Note ---
Assessment and Plan 40 y/o male with acute respiratory failure secondary to COVID 19 pneumonia and obesity with HTN 1. Steroids, IV remdesivir and prone as much as tolerated during the day and sleep prone at night 2. HTN control per primary 3. Still positive from a fluid standpoint. Will give a one time dose of IV lasix 20 4. Guarded prognosis given obesity. Subjective Date of service: 11/03/20 Interval history: All inflammatory markers improving. Remains on 2 liters NC. Good sats. Per chart, notes that he is feeling better. Objective Vital Signs - 12hr 11/03/20 04:22 Temperature 98.0 F Pulse Rate 59 L Respiratory 20 Rate Blood Pressure 146/92 O2 Sat by Pulse 93 Oximetry CBC and BMP: 11/01/20 04:29 11/02/20 04:27 ABG, PT/INR, D-dimer: PT/INR, D-dimer D-Dimer 147.23 ng/mlDDU (0-234) 11/03/20 04:28 Abnormal lab findings: Abnormal Labs 10/30/20 10/30/20 10/30/20 02:59 02:59 02:59 MCV 81 L MCHC 35 H Riley % (Auto) 11.0 H Lymph # (Auto) 0.8 L Seg Neutrophils % 75.2 H D-Dimer 494.03 H Sodium 134 L Chloride 97.3 L Creatinine Glucose 106 H Ferritin Lactate Dehydrogenase C-Reactive Protein Albumin 3.6 L Coronavirus (PCR) SARS-CoV-2 IgG Ab 10/30/20 10/30/20 10/30/20 02:59 03:02 07:36 MCV MCHC Riley % (Auto) Lymph # (Auto) Seg Neutrophils % D-Dimer 420.59 H Sodium Chloride Creatinine Glucose 108 H Ferritin 528.3 H Lactate Dehydrogenase 271 H C-Reactive Protein 8.30 H Albumin Coronavirus (PCR) SARS-CoV-2 IgG Ab 10/30/20 10/30/20 10/30/20 07:36 07:36 Unknown MCV MCHC Riley % (Auto) Lymph # (Auto) Seg Neutrophils % D-Dimer Sodium Chloride Creatinine Glucose 132 H Ferritin 520.3 H Lactate Dehydrogenase 285 H C-Reactive Protein 8.20 H Albumin Coronavirus (PCR) Positive A SARS-CoV-2 IgG Ab 10/31/20 11/01/20 11/01/20 13:52 04:29 04:29 MCV 82 L MCHC Riley % (Auto) Lymph # (Auto) Seg Neutrophils % D-Dimer > 76632 H Sodium Chloride Creatinine Glucose Ferritin Lactate Dehydrogenase C-Reactive Protein Albumin Coronavirus (PCR) SARS-CoV-2 IgG Ab Reactive A 11/01/20 11/01/20 11/02/20 04:29 04:29 04:27 MCV MCHC Riley % (Auto) Lymph # (Auto) Seg Neutrophils % D-Dimer Sodium Chloride Creatinine 0.7 L Glucose 111 H Ferritin 485.4 H Lactate Dehydrogenase 230 H C-Reactive Protein Albumin Coronavirus (PCR) SARS-CoV-2 IgG Ab 11/03/20 11/03/20 04:28 04:28 MCV MCHC Riley % (Auto) Lymph # (Auto) Seg Neutrophils % D-Dimer Sodium Chloride Creatinine Glucose Ferritin 364.8 H Lactate Dehydrogenase 210 H C-Reactive Protein Albumin Coronavirus (PCR) SARS-CoV-2 IgG Ab
--- NOTE | 2020-11-03 14:11 | Progress Note ---
Assessment and Plan Cultures: Blood culture no growth today SARS-CoV 2 IgG positive SARS-CoV-2 PCR positive Urine culture 10-100,000 CFU A/P: 40-year-old man past medical history morbid obesity, hypertension admitted with COVID-19 pneumonia #Severe COVID-19 pneumonia: SARS-CoV-2 IgG positive, patient is not a candidate for Covid convalescent plasma. Patient presented with a week of symptoms, chest x-ray with diffuse bilateral infiltrates, markers improving. #Acute hypoxemic respiratory failure: Likely secondary to COVID-19 infection. Oxygenation improving. Currently on 2 L nasal cannula #Morbid obesity: Associated with worse COVID-19 outcomes #Bacteriuria: Likely contamination urinalysis not consistent with UTI Recs: -Continue dexamethasone 6 mg IV/PO daily for 10 days -Continue remdesivir D4 of 5. -Obtain daily inflammatory markers - ferritin, Ddimer, CRP, LDH every 48 hours -Check 6-minute walking test tomorrow morning, if patient passes okay to discharge tomorrow after last dose of remdesivir, if patient does not pass walking test consider arranging home O2 will follow MD [facility] ([facility]) Office [phone] Subjective Date of service: 11/03/20 Principal diagnosis: covid Interval history: Patient report he feels much better, cough is better, no shortness of breath, he is able to walk to the bathroom without problems. No fever. Objective - Exam Narrative Exam: Physical Exam: reviewed ED and hospitalist notes, limited due to conservation of PPE and decrease risk of transmission. General appearance: limited due to conservation of PPE Eyes: limited due to conservation of PPE HENT: Atraumatic; limited due to conservation of PPE Lungs: limited due to conservation of PPE CV: limited due to conservation of PPE Abdomen: limited due to conservation of PPE Extremities: limited due to conservation of PPE Skin: limited due to conservation of PPE Psych: limited due to conservation of PPE Neuro: limited due to conservation of PPE - Constitutional Vitals: Vital Signs Temp Pulse Resp BP Pulse Ox 98.0 F 59 L 20 146/92 93 11/03/20 04:22 11/03/20 04:22 11/03/20 04:22 11/03/20 04:22 11/03/20 04:22 Temperature -Last 24 Hours Temperature 98.0 F Temperature 98.6 F Temperature 98.0 F Temperature 97.9 F - Labs CBC & Chem 7: 11/01/20 04:29 11/02/20 04:27 Labs: Abnormal lab results 11/03/20 11/03/20 Range/Units 04:28 04:28 Ferritin 364.8 H (30.0-300.0) ng/mL Lactate Dehydrogenase 210 H (91-180) units/L
[2020-11-03] MEDS: SODIUM CHLORIDE 0.9% 50 ML IVPB IV SCH (23:16)
[2020-11-03] MEDS: REMDESIVIR 100 MG in SODIUM CHLORIDE 0.9% 250ML 250 ML IV SCH (23:16)
--- NOTE | 2020-11-04 08:36 | Progress Note ---
Assessment and Plan Cultures: Blood culture no growth today SARS-CoV 2 IgG positive SARS-CoV-2 PCR positive Urine culture 10-100,000 CFU A/P: 40-year-old man past medical history morbid obesity, hypertension admitted with COVID-19 pneumonia #Severe COVID-19 pneumonia: SARS-CoV-2 IgG positive, patient is not a candidate for Covid convalescent plasma. Patient presented with a week of symptoms, chest x-ray with diffuse bilateral infiltrates, markers improving. #Acute hypoxemic respiratory failure: Likely secondary to COVID-19 infection. Oxygenation improving. Currently on 3 L nasal cannula #Morbid obesity: Associated with worse COVID-19 outcomes #Bacteriuria: Likely contamination urinalysis not consistent with UTI Recs: -Continue dexamethasone 6 mg IV/PO daily for 10 days -Continue remdesivir D5 of 5. -Obtain daily inflammatory markers - ferritin, Ddimer, CRP, LDH every 48 hours -Check 6-minute walking test today, if patient passes okay to discharge tomorrow after last dose of remdesivir, if patient does not pass walking test consider arranging home O2 will follow MD [facility] ([facility]) Office [phone] Subjective Date of service: 11/04/20 Principal diagnosis: covid Interval history: Now on 3 L, no fever Objective - Exam Narrative Exam: Physical Exam: reviewed ED and hospitalist notes, limited due to conservation of PPE and decrease risk of transmission. General appearance: limited due to conservation of PPE Eyes: limited due to conservation of PPE HENT: Atraumatic; limited due to conservation of PPE Lungs: limited due to conservation of PPE CV: limited due to conservation of PPE Abdomen: limited due to conservation of PPE Extremities: limited due to conservation of PPE Skin: limited due to conservation of PPE Psych: limited due to conservation of PPE Neuro: limited due to conservation of PPE - Constitutional Vitals: Vital Signs Temp Pulse Resp BP Pulse Ox 97.5 F L 66 20 165/107 95 11/04/20 05:40 11/04/20 05:40 11/04/20 05:40 11/04/20 05:40 11/04/20 05:40 Temperature -Last 24 Hours Temperature 97.5 F Temperature 98.1 F Temperature 97.8 F - Labs CBC & Chem 7: 11/01/20 04:29 11/02/20 04:27
[2020-11-04] MEDS: DEXAMETHASONE 4 MG TAB PO SCH (09:46)
[2020-11-04] MEDS: ZINC SULFATE 220 MG CAP PO SCH (09:46)
[2020-11-04] MEDS: ENOXAPARIN 100 MG/1 ML INJ SUB-Q SCH (09:47)
[2020-11-04] MEDS: ASCORBIC ACID 500 MG TAB PO SCH (09:47)
[2020-11-04] MEDS: CHOLECALCIFEROL (VIT D3) 5,000 UNIT TAB PO SCH (09:47)
--- NOTE | 2020-11-04 10:21 | Discharge Summary ---
Providers - Providers Date of Admission: 10/30/20 04:27 Attending physician: CORBY SANFORD MD 10/30/20 03:40 Consult to Physician [CONS] Routine Comment: Consulting Provider: ARISTEO LOERA Physician Instructions: Reason For Exam: covid. pna 10/31/20 12:31 Consult to Physician [CONS] Routine Comment: Consulting Provider: NEO REYES Physician Instructions: Reason For Exam: shortness of breath with hyxpoxia covid Primary care physician: [employer] Hospitalization Reason for admission: COVID-19 pneumonia Condition: Stable Hospital course: Patient is 40 year old male who presents to ED with history of cough , fever and weakness going on for about 10 days, patient later on developed history of shortness of breath about 4 days ago that became progressively worse to the extent that patient could not engage in mild activity and EMS was called and patient was found to be hypoxic and he was placed on oxygen with improvement in the shortness of breath.Patient recently tested positive to COVID -19 about 4 days prior to presentation. 10/31: Covid testing came back positive. Patient still with significant dyspnea. We will add vitamin D, vitamin C and zinc in addition to the remdesivir and steroid therapy. Continue to monitor liver and renal function. We will give a dose of Lasix today and check osmolality. Have requested a bedside commode for him due to significant shortness of breath. We will also obtain a pulmonary consultation to assist with management and advised the patient to lay prone. Will monitor oxygen daily. Weight loss counseling for 15 minutes. We will monitor inflammatory markers and also hypercoagulation protocol 11/01: Start on full anticogulation, obtain CTA chest and LE doppler. Continue steroids. Patient received lasix 40mg IV x1 today. May give additional lasix today if renal function remains stable. Continue to encourage prone positioning. Guarded prognosis. 11/02: Begin weaning oxygen as tolerated. Await CTA. If worsening hypoxia will give additional dose of Lasix today while monitoring renal function. Lower extremity Dopplers negative. 11/03 patient is alert and oriented and offers no specific complaints and states that he is getting better every day. He is able to ambulate to the restroom with oxygen which she was unable to couple of days ago. Denies fever or chills. lab results reviewed. ID and pulmonary notes reviewed 11/04: Patient seen and examined doing well this morning patient has completed remdesivir. Will complete outpatient the steroids. O2 sat has gradually improved with low oxygen demand patient was treated with some intermittent Lasix during hospitalization. Of advised him to continue isolation precautions given when he gets home. To ensure that his family members are Safe. Weight loss counseling was also provided extensively the need to follow-up for further evaluation outpatient. A/P Acute hypoxic respiratory failure secondary to COVID-19 Continue oxygen via nasal cannula at 4 L Slow improvement Pulmonary note reviewed COVID-19 pneumonitis ID note reviewed Continue remdesivir day 4 cont. Decadron day 4 inflammatory markers reviewed and are improving Morbid obesity Counseling on weight loss and diet and exercise was done Secondary coagulopathy D-dimer was 10,000 yesterday but it has dropped to 147 today- ? Lab error Continue DVT prophylaxis Disposition: TO HOME OR SELFCARE Time spent for discharge: 35 minutes Core Measure Documentation - Palliative Care Palliative Care/ Comfort Measures: Not Applicable - Core Measures Any of the following diagnoses?: none Exam - Physical Exam Narrative exam: VITAL SIGNS: Reviewed. GENERAL: The patient appears normally developed, resting comfortably in bed vital signs as documented. HEAD: No signs of head trauma. EYES: Pupils are equal. Extraocular motions intact. EARS: Hearing grossly intact. MOUTH: Oropharynx is normal. NECK: No adenopathy, no JVD. CHEST: Chest with diminished breath sounds bilaterally. No wheezes, rales, or rhonchi. CARDIAC: Regular rate and rhythm. S1 and S2, without murmurs, gallops, or rubs. VASCULAR: No Edema. Peripheral pulses normal and equal in all extremities. ABDOMEN: Soft, non tender and non distended. No rebound or guarding, and no masses palpated. Bowel Sounds normal. MUSCULOSKELETAL: Good range of motion of all major joints. Extremities without clubbing, cyanosis or edema. NEUROLOGIC EXAM: Alert and oriented x 3 No focal sensory or strength defici ts. Speech normal. Follows commands. PSYCHIATRIC: Mood anxious. SKIN: detail exam as documented in skin assessment - Constitutional Vitals: Temp Pulse Resp BP Pulse Ox 97.5 F L 66 20 165/107 95 11/04/20 05:40 11/04/20 05:40 11/04/20 05:40 11/04/20 05:40 11/04/20 05:40 Plan Activity: advance as tolerated, fall precautions Diet: low fat Special Instructions: record daily weights, record daily BP diary Follow up with: PRIMARY CARE, [Primary Care Provider] - 7 Days ARISTEO LOERA MD [Staff Physician] - 7 Days NEO REYES MD [Staff Physician] - 7 Days Forms: Work/School Release Form(ED) Prescriptions: Aspirin [Adult Aspirin] 81 mg PO DAILY #30 tablet. dexAMETHasone [Dexamethasone] 6 mg PO DAILY #6 tablet Ascorbic Acid [Vitamin C] 1,000 mg PO BID #60 tablet Cholecalciferol (Vitamin D3) [Vitamin D3] 5,000 unit PO DAILY #10 tablet Zinc Sulfate 220 mg PO BID #60 capsule
[2020-11-04 11:37] VITALS: BP 136/85
== END 2020-11-04 13:30 | disposition home or self-care (01) | DRG 177 ==
LOC: ED 02:15 → 3A 03:46 → OBSVTOIN 04:27 → 3A 04:29
PROVIDERS: ADMIT Internal Medicine; ATTEND Internal Medicine
PROC: XW033E5 Introduction of Remdesivir Anti-infective into Peripheral Vein, Percutaneous Approach, New Technology Group 5 (ICD-10-PCS; principal; 2020-10-30)
DX: U07.1 COVID-19 (principal); J12.89 Other viral pneumonia; J96.01 Acute respiratory failure with hypoxia; Z68.45 Body mass index [BMI] 70 or greater, adult; D68.8 Other specified coagulation defects; I10 Essential (primary) hypertension; E66.01 Morbid (severe) obesity due to excess calories
CPT/HCPCS: 36415; 71045; 71275; 80048; 80053; 81001; 82140; 82728; 82947; 83615; 83930; 84145; 85025; 85027; 85379; 86140; 87040; 87086; 90471; 93970; 94760; 96365; 96366; 96375; G0378; J0456; J0696; J1100; J1644; J1650; J1940; J7030; J7050; J8540; Q9967; U0003

== ENCOUNTER 2021-05-17 20:46 | Emergency (ER) | payer SELFPAY ==
[2021-05-17] MEDS ORDERED: ASPIRIN 325 MG TAB PO ONE (21:07)
--- NOTE | 2021-05-17 21:08 | Event Note ---
ED Screening Note ED Screening Note: Patient presents for substernal chest pain that began yesterday He states he has intermittent sharp stabbing pain He denies any radiation of the pain He denies any nausea, vomiting, diarrhea, fever, diaphoresis, leg swelling, shortness of breath Past medical history of hypertension He states he is a non-smoker No allergies to medicines This initial assessment/diagnostic orders/clinical plan/treatment(s) is/are subject to change based on patients health status, clinical progression and re- assessment by fellow clinical providers in the ED. Further treatment and workup at subsequent clinical providers discretion. Patient/guardian urged not to elope from the ED as their condition may be serious if not clinically assessed and managed. Initial orders include: Chest pain protocol
[2021-05-17 21:19] LABS: Basophils % (Auto) 0.5 % (0.0-1.8); Eosinophils # (Auto) 0.2 K/mm3 (0.0-0.4); Eosinophils % (Auto) 1.8 % (0.0-4.3); Hematocrit 40.6 % (35.5-45.6); Hemoglobin 14.3 gm/dl (11.8-15.2); Lymphocytes # (Auto) 2.1 K/mm3 (1.2-5.4); Lymphocytes % (Auto) 21.8 % (13.4-35.0); Mean Corpuscular HGB Conc 35 % (32-34); Mean Corpuscular Volume 82 fl (84-94); Monocytes # (Auto) 0.8 K/mm3 (0.0-0.8); Monocytes % (Auto) 8.6 % (0.0-7.3); Platelet Count 214 K/mm3 (140-440); Red Blood Count 4.98 M/mm3 (3.65-5.03); Red Cell Distribution Width 13.8 % (13.2-15.2)
[2021-05-17 21:42] LABS: Alanine Aminotransferase 24 units/L (7-56); Albumin 4.5 g/dL (3.9-5); Blood Urea Nitrogen 13 mg/dL (9-20); Calcium 9.9 mg/dL (8.4-10.2); Hemolysis Index 10
[2021-05-17 21:48] LABS: BUN/Creatinine Ratio 19
--- NOTE | 2021-05-17 21:53 | XRay Report ---
CHEST 2 VIEWS INDICATION: Chest Pain. COMPARISON: 10/30/2020 FINDINGS: Support devices: None. Heart: Within normal limits. Lungs: No acute air space or interstitial disease. Pleura: No significant pleural effusion. No pneumothorax. Additional findings: None. IMPRESSION: 1. No acute findings. Signer Name: Alcides Haque MD Signed: 05/17/2021 9:49 PM Workstation Name: [email or web address] [id number]
[2021-05-18] MEDS ORDERED: KETOROLAC 60 MG/2 ML INJ IM ONE (03:08)
--- NOTE | 2021-05-18 03:14 | Emergency Department Report ---
ED Chest Pain HPI - General Chief Complaint: Chest Pain Stated Complaint: CHEST PAIN Time Seen by Provider: 05/17/21 21:06 Source: patient Mode of arrival: Ambulatory Limitations: No Limitations - History of Present Illness Initial Comments: This is a 41-year-old male who presents to the emergency department with a complaint of a 1 day history of midsternal intermittent chest pain. Overall the patient says that this has been going on for "a long time, but I have been following up with my doctor and they say everything is fine." The patient had a negative stress test 2 months ago through [facility] cardiology. He says that he has sharp midsternal chest pains that occur about every 20 to 30 minutes. He had a Covid vaccination last , 4 days ago, and says that the chest pains picked up over the past 1 day. He denies any radiation of this pain. He denies any shortness of breath, fever, back pain, lower extremity swelling. He has a past medical history of hypertension. He denies any tobacco or illicit drug use. He did not take anything for his symptoms prior to presentation. - Related Data Home Medications Medication Instructions Recorded Confirmed Last Taken Lisinopril 20 mg PO DAILY 10/30/20 10/30/20 10/29/20 Procardia 60 mg PO DAILY 10/30/20 10/31/20 10/29/20 HCTZ 25 mg PO DAILY 10/31/20 10/31/20 Unknown Previous Rx's Medication Instructions Recorded Last Taken Type Ascorbic Acid [Vitamin C] 1,000 mg PO BID #60 tablet 11/04/20 Unknown Rx Aspirin [Adult Aspirin] 81 mg PO DAILY #30 tablet 11/04/20 Unknown Rx Cholecalciferol (Vitamin D3) 5,000 unit PO DAILY #10 tablet 11/04/20 Unknown Rx [Vitamin D3] Zinc Sulfate 220 mg PO BID #60 capsule 11/04/20 Unknown Rx dexAMETHasone [Dexamethasone] 6 mg PO DAILY #6 tablet 11/04/20 Unknown Rx Allergies Allergy/AdvReac Type Severity Reaction Status Date / Time No Known Allergies Allergy Verified 12/22/16 06:27 Heart Score - HEART Score History: Slightly suspicious EKG: Normal Age: < 45 Risk factors: 1-2 risk factors Troponin: < normal limit HEART Score: 1 - EKG Read Time Time EKG Completed: 21:24 EKG Read Time: 21:25 - Critical Actions Critical Actions: 0-3 pts:0.9-1.7%risk of adverse cardiac event.Candidate for discharge ED Review of Systems ROS: Stated complaint: CHEST PAIN Other details as noted in HPI Comment: All other systems reviewed and negative Constitutional: denies: chills, fever Eyes: denies: eye pain, vision change ENT: denies: ear pain, throat pain Respiratory: denies: cough, shortness of breath Cardiovascular: chest pain. denies: palpitations Gastrointestinal: denies: abdominal pain, vomiting Genitourinary: denies: dysuria, discharge Musculoskeletal: denies: back pain, arthralgia Skin: denies: rash, lesions Neurological: denies: headache, weakness ED Past Medical Hx - Past Medical History Hx Hypertension: Yes Hx Heart Attack/AMI: No Hx Congestive Heart Failure: No Hx Diabetes: No Hx Deep Vein Thrombosis: No Hx Pulmonary Embolism: No Hx Renal Disease: No Hx Sickle Cell Disease: No Hx Arthritis: No Hx Seizures: No Hx Asthma: No Hx COPD: No Hx Tuberculosis: No Hx HIV: No - Surgical History Hx Coronary Stent: No Hx Pacemaker: No Hx Internal Defibrillator: No Hx Appendectomy: No - Social History Smoking Status: Never Smoker Substance Use Type: None - Medications Home Medications: Home Medications Medication Instructions Recorded Confirmed Last Taken Type Lisinopril 20 mg PO DAILY 10/30/20 10/30/20 10/29/20 History Procardia 60 mg PO DAILY 10/30/20 10/31/20 10/29/20 History HCTZ 25 mg PO DAILY 10/31/20 10/31/20 Unknown History Ascorbic Acid [Vitamin C] 1,000 mg PO BID #60 tablet 11/04/20 Unknown Rx Aspirin [Adult Aspirin] 81 mg PO DAILY #30 tablet. 11/04/20 Unknown Rx Cholecalciferol (Vitamin D3) 5,000 unit PO DAILY #10 tablet 11/04/20 Unknown Rx [Vitamin D3] Zinc Sulfate 220 mg PO BID #60 capsule 11/04/20 Unknown Rx dexAMETHasone [Dexamethasone] 6 mg PO DAILY #6 tablet 11/04/20 Unknown Rx ED Physical Exam - General Limitations: No Limitations - Other Other exam information: GENERAL: The patient is well-developed well-nourished. HENT: Normocephalic. Atraumatic. Patient has moist mucous membranes. EYES: Extraocular motions are intact. NECK: Supple. Trachea is midline. CHEST/LUNGS: Clear to auscultation. There is no respiratory distress noted. HEART/CARDIOVASCULAR: Regular. There is no tachycardia. There is no murmur. ABDOMEN: Abdomen is soft, nontender. Patient has normal bowel sounds. There is no abdominal distention. SKIN: Skin is warm and dry. NEURO: The patient is awake, alert, and oriented. The patient is cooperative. The patient has no focal neurologic deficits. Normal speech. MUSCULOSKELETAL: There is no tenderness or deformity. There is no limitation range of motion. ED Course Vital Signs 05/17/21 05/18/21 21:04 03:21 Temperature 98.8 F Pulse Rate 95 H Respiratory 18 18 Rate Blood Pressure 146/85 O2 Sat by Pulse 94 Oximetry FERNANDA score - Fernanda Score Age > 65: (0) No Aspirin use within the Past 7 Days: (0) No 3 or more CAD Risk Factors: (0) No 2 or more Angina events in past 24 hrs: (1) Yes Known CAD with more than 50% Stenosis: (0) No Elevated Cardiac Markers: (0) No ST Deviation Greater than 0.5mm: (0) No FERNANDA Score: 1 ED Medical Decision Making - Lab Data Result diagrams: 05/17/21 21:07 05/17/21 21:07 - EKG Data -: EKG Interpreted by Me EKG shows normal: sinus rhythm, axis, intervals, QRS complexes, ST-T waves Rate: normal - EKG Data When compared to previous EKG there are: previous EKG unavailable Interpretation: normal EKG - Radiology Data Radiology results: image reviewed interpreted by me: Chest x-ray does not show any acute process. There are no pleural effusions, obvious pneumonia and there is no pneumothorax. No widened mediastinum. - Medical Decision Making This patient presents with a complaint of midsternal intermittent chest pains that have been going on for a "long time", but worsened over the past 24 hours. At the time of my examination the patient is asymptomatic. EKG did not have any morphology consistent with ST elevation myocardial infarction or any dysrhythmia. Chest x-ray does not show any pneumonia, pleural effusions, pneumothorax, widened mediastinum, or any other acute process. The patient's labs have been unremarkable including CBC, metabolic panel and negative troponins x2. The patient is low on the heart and FERNANDA score. On top of that, the patient says that he had a negative stress test through [facility] cardiology 2 months ago. The patient does not have any risk factors for thromboembolic disease. He is low on the Wells score criteria and negative on the pulmonary embolism rule out criteria. For this reason he appears safe for discharge home at this time. He does not appear to have any life or limb threatening emergency that requires immediate intervention or a medical admission. He has good outpatient follow-up with primary care and cardiology. He will return to the emergency department with any worsening of his symptoms or with any acute distress. Critical Care Time: No Critical care attestation.: If time is entered above; I have spent that time in minutes in the direct care of this critically ill patient, excluding procedure time. 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 Return to the emergency department with any worsening of your symptoms, new or concerning symptoms not addressed during this current emergency department visit, or with any acute distress. Referrals: [facility] [Provider Group] - 2-3 Days Time of Disposition: 03:29
[2021-05-18 04:30] VITALS: BP 122/79
--- NOTE | 2021-05-21 09:41 | Electrocardiograph Report ---
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
== END 2021-05-18 03:40 | disposition home or self-care (01) ==
LOC: ED 20:46
DX: R07.89 Other chest pain (principal); I10 Essential (primary) hypertension
CPT/HCPCS: 36415; 71046; 80053; 84484; 85025; 93005; 96372; 99283; J1885